=== PATIENT | male | born 1935 | race Caucasian/White ===

== ENCOUNTER 2016-11-25 10:48 | Emergency (ER) | payer OTHER, BC ==
[2016-11-25 11:05] VITALS: BP 147/76; PULSE 75; TEMP 98; BMI 20.5
--- NOTE | 2016-11-25 11:55 | PDOC ---
History of Present Illness - General Chief Complaint: Injury Stated Complaint: RT FINGER PAIN Time Seen by Provider: 11/25/16 10:57 History Source: Patient Exam Limitations: No Limitations - History of Present Illness Initial Comments: 11/25/16 11:50 Patient states was getting up from a folding chair last night when the chair collapsed causing him to fall and crushing his right index finger between chair and the floor. States incurred laceration and contusion. Cleaned with soap and water and put a Band-Aid on. Came for evaluation and x-ray and no other injury 11/25/16 13:04 Occurred: reports: just prior to arrival Severity: reports: mild Pain Location: reports: none Modifying Factors: improves with: None Associated Symptoms (Fall): denies symptoms Past History - Travel Traveled outside of the country in the last 30 days: No Close contact w/someone who was outside of country & ill: No - Past Medical History Allergies/Adverse Reactions: Allergies Allergy/AdvReac Type Severity Reaction Status Date / Time No Known Allergies Allergy Verified 11/25/16 10:51 Home Medications: Ambulatory Orders Aspirin [Ecotrin] 81 mg PO DAILY 08/11/14 Pramipexole Di-HCl [Mirapex] 0.25 mg PO BID 11/25/16 Anemia: No Asthma: No Cancer: No Cardiac Disorders: No CVA: No COPD: No CHF: No Dementia: No Diabetes: No GI Disorders: No Disorders: No HTN: No Hypercholesterolemia: No Liver Disease: (ELEVATED LIVER ENZYMES) Seizures: No Thyroid Disease: No - Surgical History Abdominal Surgery: Yes (CHELSI INGUINAL HERNIA REPAIR) Cholecystectomy: No Neurologic Surgery: No Orthopedic Surgery: Yes (LEFT ROTATOR CUFF REPAIR) - Psycho/Social/Smoking Cessation Hx Anxiety: No Suicidal Ideation: No Smoking History: Former smoker Have you smoked in the past 12 months: No If you are a former smoker, when did you quit?: 2004 Information on smoking cessation initiated: No Hx Alcohol Use: No Drug/Substance Use Hx: No Substance Use Type: None Hx Substance Use Treatment: No Trauma Specific PMHX - Complaint Specific PMHX Back Injury: No Neck Injury: No Review of Systems - Review of Systems Able to Perform ROS?: Yes Is the patient limited Vietnamese proficient: Yes Constitutional: Yes: See HPI. No: Symptoms Reported HEENTM: No: Symptoms Reported Respiratory: No: Symptoms reported Musculoskeletal: Yes: Symptoms Reported, Joint Pain (distal right index finger) Integumentary: Yes: Symptoms Reported, See HPI, Bruising, Other (abrasion to distal right index ) Neurological: No: Symptoms reported All Other Systems: Reviewed and Negative *Physical Exam - Vital Signs Last Vital Signs Temp Pulse Resp BP Pulse Ox 98 F 75 18 147/76 100 11/25/16 10:51 11/25/16 10:51 11/25/16 10:51 11/25/16 10:51 11/25/16 10:51 - Physical Exam General Appearance: Yes: Nourished, Appropriately Dressed, Apparent Distress, Mild Distress HEENT: positive: URBANO, Normal ENT Inspection, TMs Normal, Pharynx Normal Neck: positive: Supple. negative: Tender Respiratory/Chest: positive: Lungs Clear, Normal Breath Sounds Gastrointestinal/Abdominal: positive: Normal Bowel Sounds, Soft Extremity: positive: Normal Capillary Refill, Normal Inspection, Normal Range of Motion (buit painful to flexion/ intact against resistance ), Tender (with superficial abrasions to volar aspect of right distal phalynx ) Integumentary: positive: Dry, Warm Neurologic: positive: deck molder II-XII NML intact, Fully Oriented, Alert, Normal Mood/ Affect, Normal Response, Motor Strength 5/5 ED Treatment Course - RADIOLOGY Radiology Studies Ordered: Category Date Time Status FINGER(S) RIGHT [RAD] Stat Radiology 11/25/16 10:57 Taken Progress Note - Progress Note Progress Note: Crush injury to right index finger, greater than 18 hours old. Cleaned and dressed with bacitracin ointment and splint provided. X-ray negative for fractures or dislocations. *DC/Admit/Observation/Transfer Diagnosis at time of Disposition: Crush injury to finger Qualifiers: Encounter type: initial encounter Qualified Code(s): S67.10XA - Crushing injury of unspecified finger(s), initial encounter - Discharge Dispostion Disposition: HOME Condition at time of disposition: Stable Admit: No - Referrals Referrals: Ferdinand Leonard MD, MD [Primary Care Provider] - - Patient Instructions Printed Discharge Instructions: DI for Crush Injury Additional Instructions: Rest, elevate, avoid strenuous activity or heavy lifting until sutures are removed Leave dressing on for the next 24 hours, Then may remove dressing gently and wash area with soap and water. Reapply bacitracin ointment and dressing daily for the next 5 days May use Tylenol or Motrin for pain relief
== END 2016-11-25 12:00 | disposition home or self-care (01) ==
LOC: SUPCPDRO 10:48 → JERFT 10:48
PROC: 2W3JX1Z Immobilization of Right Finger using Splint (ICD-10-PCS; principal; 2016-11-25)
DX: S67.190A Crushing injury of right index finger, initial encounter (principal); W23.0XXA Caught, crushed, jammed, or pinched between moving objects, initial encounter; Y93.89 Activity, other specified; Y92.89 Other specified places as the place of occurrence of the external cause; R94.5 Abnormal results of liver function studies; Z87.891 Personal history of nicotine dependence
CPT/HCPCS: 73140-TC-RT; 99281-25

== ENCOUNTER 2020-03-20 04:56 | Day surgery (SDC) | payer OTHER, BC ==
[2020-03-19 10:52] VITALS: BMI 20.3
--- OUTSIDE RECORDS SUMMARY | 2020-03-20 05:27 | XMS ---
:1935 Author Organization [facility] Care Team Providers Name Role Phone Erosa Unavailable Erosa Unavailable Re-disclosure Warning The records that you are about to access may contain information from federally- assisted alcohol or drug abuse programs. If such information is present, then the following federally mandated warning applies: This information has been disclosed to you from records protected by federal confidentiality rules (42 CFR part 2). The federal rules prohibit you from making any further disclosure of this information unless further disclosure is expressly permitted by the written consent of the person to whom it pertains or as otherwise permitted by 42 CFR part 2. A general authorization for the release of medical or other information is NOT sufficient for this purpose. The Federal rules restrict any use of the information to criminally investigate or prosecute any alcohol or drug abuse patient.The records that you are about to access may contain highly sensitive health information, the redisclosure of which is protected by Article 27-F of the [facility] Public Health law. If you continue you may haveaccess to information: Regarding HIV / AIDS; Provided by facilities licensed or operated by the [facility] Office of Mental Health; or Provided by the [facility] Office for People With Developmental Disabilities. If such information is present, then the following [facility] mandated warning applies: This information has been disclosed to you from confidential records which are protected by state law. State law prohibits you from making any further disclosure of this information without the specific written consent of the person to whom it pertains, or as otherwise permitted by law. Any unauthorized further disclosure in violation of state law may result in a fine or senior living sentence or both. A general authorization for the release of medical or other information is NOT sufficient authorization for further disclosure. Encounters Encounter Providers Location Date Indications Data Source(s ) Attender: Ricki 03/10/2020 [facility] ([facility] 12:00:00 AM EDT Medical, ) Office Attender: Ricki Mcgowan 03/10/2020 12:00:00 AM EDT [facility] ([facility], ) Office Attender: Ricki Mcgowan 03/10/2020 12:00:00 AM EDT [facility] ([facility], ) Office Attender: Ricki Mcgowan 03/10/2020 12:00:00 AM EDT [facility] ([facility], ) Office Attender: Ricki Mcgowan 03/10/2020 12:00:00 AM EDT [facility] ([facility], ) Office Attender: Ricki Mcgowan 02/27/2020 12:00:00 AM EDT [facility] ([facility], ) Office Attender: Ricki Mcgowan 02/17/2020 12:00:00 AM EDT [facility] ([facility], ) Office Attender: Ricki Mcgowan 02/17/2020 12:00:00 AM EDT [facility] ([facility], ) Office Attender: Ricki Mcgowan 02/17/2020 12:00:00 AM EDT [facility] ([facility], ) Office Attender: Ricki Mcgowan 02/17/2020 12:00:00 AM EDT [facility] ([facility], ) Office Medications Medication Brand Start Product Dose Route Administrative Pharmacy [facility] Indications Reaction Description Data Name Date Form Instructions Instructions Source(s) Cyclobenzap FLEXER 02/26/ TABLET 60 complet FLEX ERIL [facility] ([facility] IL:828 2019 ed [facility] hydrochlori 322 12:00: Medica l, de 5 MG 00 AM ) Oral Tablet EDT [Flexeril] FLEXERIL:82 8322 Cyclobenzap FLEXER 02/26/ TABLET 60 complet FLEX ERIL [facility] ([facility] [place]:828 2019 ed [facility] hydrochlori 322 12:00: Medica l, de 5 MG 00 AM PC) Oral Tablet EDT [Flexeril] FLEXERIL:82 8322 tizanidine TIZANI 02/24/ TABLET 60 complet TIZAN IDINE [facility] (St 2 MG Oral DINE:3 2019 ed [facility] Tablet 99146 12:00: Medical, TIZANIDINE: 00 AM PC) [id number] EDT EMOLLIENTS, 02/24/ CREAM 1 complet EMOLLIE NTS, [facility] (St TOPICAL:2019 ed TOPICAL [facility] 176 12:00: Medical, 00 AM PC) EDT EMOLLIENTS, 02/24/ CREAM 1 complet EMOLLIE NTS, [facility] (St TOPICAL:2019 ed TOPICAL [facility] 176 12:00: Medical, 00 AM PC) EDT tizanidine TIZANI 02/24/ TABLET 60 complet TIZAN IDINE [facility] (St 2 MG Oral DINE:3 2019 ed [facility] Tablet 19802 12:00: Medical, TIZANIDINE: 00 AM PC) [id number] EDT Insurance Providers Payer name Policy type Policy ID Covered Covered green party's Policy P gómez / Coverage green party ID relationship to Espitia Inf ormation type espitia [facility] [id number] SP [id number] [facility] PPO [id number] SP [id number] MEDICARE [id number] SP [id number] PPO [id number] SP [id number] [employer] PLAN [id number] ([facility]) [place] MEDICARE [id number] 1 [id number] PART B [facility] [id number] SP [id number] [facility] PPO [id number] SP [id number] Problems, Conditions, and Diagnoses Code Display Name Description Problem Type Effective Dates Data Source(s) M47.817 Spondylosis SPONDYLOSIS Problem 03/10/2020 [facility] ([facility] 12:00:00 AM EDT [facility], myelopathy or MYELOPATHY OR PC) radiculopathy, RADICULOPATHY, lumbosacral LUMBOSACRAL region REGION M79.18 MYALGIA, OTHER MYALGIA, OTHER Problem 02/05/2020 [facility] ([facility] S[facility] SITE 12:00:00 AM EDT [facility], PC) M54.5 Low back pain LOW BACK PAIN Problem 02/05/2020 [facility] ( St 12:00:00 AM EDT [facility]) M79.18 MYALGIA, OTHER MYALGIA, OTHER Problem 02/05/2020 [facility] ([facility] SITE 12:00:00 AM EDT [facility]) M54.5 Low back pain LOW BACK PAIN Problem 02/05/2020 [facility] ( St 12:00:00 AM EDT [facility]) M79.18 MYALGIA, OTHER MYALGIA, OTHER Problem 02/05/2020 [facility] ([facility] SITE 12:00:00 AM EDT [facility]) M54.5 Low back pain LOW BACK PAIN Problem 02/05/2020 [facility] ( St 12:00:00 AM EDT [facility]) M79.18 MYALGIA, OTHER MYALGIA, OTHER Problem 02/05/2020 [facility] ([facility] SITE 12:00:00 AM EDT [facility]) M54.5 Low back pain LOW BACK PAIN Problem 02/05/2020 [facility] ( St 12:00:00 AM EDT [facility]) M25.512 Pain in left PAIN IN LEFT Problem 12/25/2019 [facility] (St shoulder SHOULDER 12:00:00 AM EDT [facility], PC) M25.512 Pain in left PAIN IN LEFT Problem 12/25/2019 [facility] (St shoulder SHOULDER 12:00:00 AM EDT [facility]) M25.512 Pain in left PAIN IN LEFT Problem 12/25/2019 [facility] (St shoulder SHOULDER 12:00:00 AM EDT [facility]) M25.512 Pain in left PAIN IN LEFT Problem 12/25/2019 [facility] (St shoulder SHOULDER 12:00:00 AM EDT [facility]) M25.512 Pain in left PAIN IN LEFT Problem 12/25/2019 [facility] (St shoulder SHOULDER 12:00:00 AM EDT [facility]) Surgeries/Procedures Procedure Description Date Indications Data Source(s) OFFICE OUTPATIENT VISIT 03/10/2020 [facility] MIN[facility]ES 12:00:00 AM EDT Medical, PC) Documentation of current 02/27/2020 [facility] ([facility] (procedure) 12:00:00 AM EDT [facility], ) PHYSICIAN TELEPHONE 02/27/2020 [facility] ( [facility] EVALUATION 5-10 MIN 12:00:00 AM EDT [facility], ) Documentation of current 02/27/2020 [facility] ([facility]IC[facility] TELEPHONE 02/27/2020 [facility] ( [facility] EVALUATION 5-10 MIN 12:00:00 AM EDT Medic mn, ) OFFICE OUTPATIENT VISIT 02/25/2020 [facility] ([facility] 15 MINUTES 12:00:00 AM EDT Medical, ) OFFICE OUTPATIENT VISIT 02/25/2020 [facility] ([facility] 15 MINUTES 12:00:00 AM EDT [facility], ) OFFICE OUTPATIENT VISIT 02/17/2020 [facility] ([facility] 15 MINUTES 12:00:00 AM EDT [facility], ) INJECTION SINGLE/TRANSPORT DRIVER 02/17/2020 [facility] ([facility] TRIGGER POINT 1/2 MUSCLES 12:00:00 AM EDT [facility], ) OFFICE OUTPATIENT VISIT 02/17/2020 [facility] ([facility] 15 MINUTES 12:00:00 AM EDT [facility], ) INJECTION SINGLE/TRANSPORT DRIVER 02/17/2020 [facility] ([facility] TRIGGER POINT 1/2 MUSCLES 12:00:00 AM EDT [facility], ) OFFICE OUTPATIENT VISIT 02/17/2020 [facility]/TRANSPORT DRIVER 02/17/2020 [facility] ([facility] TRIGGER POINT 1/2 MUSCLES 12:00:00 AM EDT [facility], ) Documentation of current 02/05/2020 [facility] ([facility] (procedure) 12:00:00 AM EDT s[facility], ) Documentation of current 02/05/2020 [facility] ([facility] (procedure) 12:00:00 AM EDT s[facility], ) Documentation of current 02/05/2020 [facility] ([facility] (procedure) 12:00:00 AM EDT sasha, ) Documentation of current 02/05/2020 [facility] ([facility] (procedure) 12:00:00 AM EDT edical, ) Documentation of current 02/05/2020 [facility] ([facility] (procedure) 12:00:00 AM EDT edical, ) OFFICE OUTPATIENT VISIT 02/05/2020 [facility] ([facility] 15 MINUTES 12:00:00 AM T Medical, ) INJECTION SINGLE/TRANSPORT DRIVER 02/05/2020 [facility] ([facility] TRIGGER POINT 1/2 MUSCLES 12:00:00 AM EDT Medical, ) Documentation of current 02/05/2020 [facility] ([facility] current 02/05/2020 [facility] ([facility]procedure) 12[facility]00:00 [facility] Documentation of current 02/05/2020 [facility] ([facility]procedure) 12:00:00 [facility] Documentation of current 02/05/2020 [facility] ([facility]procedure) 12:00:00 [facility] Documentation of current 02/05/2020 [facility] ([facility]procedure) 12:00:00 AM [facility] OFF[facility] OUTPATIENT VISIT 02/05/2020 [facility] ([facility] 15 MINUTES 12:00:00 AM [facility] Medical, ) INJECTION SINGLE/TRANSPORT DRIVER 02/05/2020 [facility] ([facility] TRIGGER POINT 1/2 MUSCLES [facility] Documentation of current 02/05/2020 [facility] ([facility] (procedure) 12:00:00 AM EDT edical, ) Documentation of current 02/05/2020 [facility] ([facility] (procedure) 12:00:00 AM EDT edical, ) OFFICE OUTPATIENT VISIT 02/05/2020 [facility] ([facility] 15 MINUTES 12:00:00 AM EDT Medical, ) Documentation of current 02/05/2020 [facility] ([facility] (procedure) 12:00:00 AM EDT edical, ) Documentation of current 02/05/2020 [facility] ([facility] (procedure) 12:00:00 AM EDT M edical, ) Documentation of current 02/05/2020 [facility] ([facility] (procedure) 12:00:00 AM EDT edical, ) Documentation of current 02/05/2020 [facility] ([facility]procedure) 12:00:00 [facility] Documentation of current 02/05/2020 [facility] ([facility]procedure) 12:00:00 AM ED[facility] Documentation of current 02/05/2020 [facility] ([facility]procedure) 12:00:00 AM ED[facility] OFF[facility] OUTPATIENT VISIT 02/05/2020 [facility] ([facility] 15 MINUTES 12:00:00 AM EDT Medical, ) INJECTION SINGLE/TRANSPORT DRIVER 02/05/2020 [facility] ([facility] TRIGGER POINT 1/2 MUSCLES 12:00:00 AM EDT Medical, ) Documentation of current 12/25/2019 [facility] ([facility] (procedure) 12:00:00 AM ED[facility] Documentation of current 12/25/2019 [facility] ([facility]procedure) 12:00:00 AM ED[facility] OFFICE OUTPATIENT VISIT 12/25/2019 [facility] ([facility] 15 MINUTES 12:00:00 AM [facility] Medical, ) Documentation of current 12/25/2019 [facility] ([facility] (procedure) 12:00:00 AM EDT [facility] Documentation of current 12/25/2019 [facility] ([facility] (procedure) 12:00:00 AM EDT edical, ) OFFICE OUTPATIENT VISIT 12/25/2019 [facility] ([facility] 15 MINUTES 12:00:00 AM EDT Medical, ) Documentation of current 12/25/2019 [facility] ([facility]procedure) 12:00:00 AM ED[facility] OFFICE OUTPATIENT VISIT 12/25/2019 [facility] ([facility] 15 MINUTES 12:00:00 AM EDT Medical, ) Documentation of current 12/25/2019 [facility] ([facility] (procedure) 12:00:00 AM EDT edical, ) OFFICE OUTPATIENT VISIT 12/25/2019 [facility] ([facility] 15 MINUTES 12:00:00 AM EDT Medical, PC) Documentation of current 12/25/2019 [facility] ([facility] (procedure) 12:00:00 AM EDT edical, ) OFFICE OUTPATIENT VISIT 12/25/2019 [facility] ([facility] 15 MINUTES 12:00:00 AM EDT Medical, PC) Results ID Date Data Source [id number] 03/16/2020 08:23:00 AM EDT [facility] Name Value Range Interpretation Description Data Sup porting Code Source(s) Document(s ) SARS [facility] coronavirus 2 RNA This lab was ordered by [facility] and reported by [facility]. ID Date Data Source [id number] 02/12/2020 10:35:00 AM EDT [facility] Name Value Range Interpretation Description Data Sup porting Code Source(s) Document(s ) SARS [facility] coronavirus 2 RNA This lab was ordered by [facility] and reported by [facility]. ID Date Data Source [id number] 01/20/2020 12:00:00 AM EDT [facility] Name Value Range Interpretation Description Data Sup porting Code Source(s) Document(s ) SARS [facility] Coronavirus 2 This lab was ordered by RACIEL copeland reported by [facility]. Procedure Social History Code Duration Value Status Description Data Source(s ) Smoking 03/10/2020 denies ETOH completed denies ETOH [facility] 12:[facility] AM EDT Medical, PC) Smoking 03/10/2020 Unknown if ever completed Unknown if ever [facility] ([facility] 12:00:00 AM EDT smoked smoked Medical, PC) Smoking 03/01/2020 denies ETOH completed denies ETOH [facility] ([facility] 12:00:00 AM EDT Medical, PC) Smoking 03/01/2020 Unknown if ever completed Unknown if ever [facility] ([facility] 12:00:00 AM EDT smoked smoked Medical, PC) Smoking 02/17/2020 denies ETOH completed denies ETOH [facility] ([facility] 12:00:00 AM EDT Medical, PC) Smoking 02/17/2020 Unknown if ever completed Unknown if ever [facility] ([facility] 12:00:00 AM EDT smoked smoked [facility], ) Smoking 02/17/2020 denies ETOH completed denies ETOH [facility] 12:00:00 AM EDT [facility], ) Smoking 02/17/2020 Unknown if ever completed Unknown if ever [facility] ([facility] 12:00:00 AM EDT smoked smoked [facility], ) Smoking 02/17/2020 denies ETOH completed denies ETOH [facility] ([facility] 12:00:00 AM EDT [facility], ) Smoking 02/17/2020 Unknown if ever completed Unknown if ever [facility] ([facility] 12:00:00 AM EDT smoked smoked [facility], ) Vital Signs ID Date Data Source UNK Name Value Range Interpretation Code Description Data Source(s) Heart rate 70 /min 70 /min [facility] ([facility] , ) Respiratory rate 14 /min 14 /min [facility] ( [facility] , ) Inhaled oxygen 98 % 98 % [facility] ([facility], ) Diastolic blood 60 mm[Hg] 60 mm[Hg] [facility] (S pressure [facility] , ) Systolic blood 110 mm[Hg] 110 mm[Hg] [facility] ([facility] , ) Heart rate 64 /min 64 /min [facility] ([facility] , ) Respiratory rate 14 /min 14 /min [facility] ( [facility] , ) Inhaled oxygen 98 % 98 % [facility] ([facility], ) Diastolic blood 60 mm[Hg] 60 mm[Hg] [facility] (S t pressure [facility] , ) Systolic blood 120 mm[Hg] 120 mm[Hg] [facility] ([facility] , ) Heart rate 64 /min 64 /min [facility] ([facility] , ) Respiratory rate 14 /min 14 /min [facility] ( [facility] , ) Inhaled oxygen 98 % 98 % [facility] ([facility], ) Diastolic blood 60 mm[Hg] 60 mm[Hg] [facility] (S t pressure [facility] , ) Systolic blood 120 mm[Hg] 120 mm[Hg] [facility] ([facility] , )
[2020-03-20] MEDS ORDERED: DEXAMETHASONE SOD PHOSPHATE/PF 10 MG/ML SDV ONE (07:19)
[2020-03-20] MEDS ORDERED: BUPIVACAINE HCL/PF 0.25% (2.5MG/ML) 10 ML VIAL ONE (07:19)
[2020-03-20] MEDS ORDERED: BUPIVACAINE HCL/PF 0.75% 10 ML VIAL ONE (07:19)
[2020-03-20] MEDS ORDERED: LIDOCAINE HCL/PF 1% SDV 5ML VIAL ONE (07:19)
--- NOTE | 2020-03-20 09:00 | PROC ---
Procedure Note Procedure: Pre procedure Diagnosis: Lumbar Spondylosis Post Procedure Diagnosis: same Anesthesia: Local Procedure Performed: Right and Left L3 L4 L5 Medial Branch Blocks under Fluoroscopic Guidance Procedure: After the risks and benefits were explained, informed consent was obtained. The patient was then taken to the procedure room and positioned prone on the procedure table. Time out was performed. The region overlying the appropriate vertebral bodies was identified using fluoroscopy. The skin was prepped and draped in the usual sterile fashion. The skin and soft tissues were anesthetized using 1% lidocaine. Using fluoroscopic guidance, 22 gauge 3.5 inch spinal needles were then introduced to the juncture of the superior articular processes and the transverse processes of the RIGHT L3, L4, and L5 medial branches are located. Omnipaque 180 confirmed appropriate needle placement. There was no epidural or vascular flow observed. .75% bupivacaine was drawn into a syringe. 0.5cc of this solution was then injected at each level. The same procedure was repeated on the LEFT side at the same levels. The patient tolerated the procedure well and there were no complications. The patient was taken to the post procedure recovery area in good condition. Vital signs remained stable before, and after the procedure. The patient was given oral follow-up instructions.The patient was givena follow up appointment with me in the near future. Ricki Mcgowan D.O.
[2020-03-20] MEDS ORDERED: LIDOCAINE HCL 1% PRESERVATIVE FREE - 30ML VIAL IJ ONE (09:22)
[2020-03-20] MEDS ORDERED: BUPIVACAINE HCL/PF 0.75% 10 ML VIAL NR ONE (09:22)
[2020-03-20] MEDS ORDERED: IOHEXOL 180 MG/1 ML ML IJ ONE (09:22)
[2020-03-20] MEDS ORDERED: BUPIVACAINE HCL/PF 0.25% (2.5MG/ML) 10 ML VIAL IJ ONE (09:22)
[2020-03-20] MEDS ORDERED: BUPIVACAINE HCL/PF 0.5% (5 MG/ML) 30 ML VIAL IJ ONE (09:22)
[2020-03-20 09:56] VITALS: BP 143/78; PULSE 60; TEMP 98
== END 2020-03-20 10:18 | disposition home or self-care (01) ==
LOC: JASU-SURG 04:56
PROVIDERS: ATTEND Pain Medicine Pain Medicine
PROC: 3E0T33Z Introduction of Anti-inflammatory into Peripheral Nerves and Plexi, Percutaneous Approach (ICD-10-PCS; 2020-03-20)
PROC: 3E0T3BZ Introduction of Anesthetic Agent into Peripheral Nerves and Plexi, Percutaneous Approach (ICD-10-PCS; principal; 2020-03-20 09:30)
DX: M47.816 Spondylosis without myelopathy or radiculopathy, lumbar region (principal); M54.5 Low back pain
CPT/HCPCS: 76000-TC-FY

== ENCOUNTER 2020-03-20 10:00 | Inpatient (IN) | payer OTHER, BC ==
[2020-03-27 12:13] VITALS: BMI 20.3
--- OUTSIDE RECORDS SUMMARY | 2020-03-30 05:12 | XMS ---
:1935 Author Organization [facility] Care Team Providers Name Role Phone Erosa Unavailable Erosa Unavailable Jacek Unavailable [phone] Jacek Unavailable [phone] Jacek Unavailable [phone] Jacek Unavailable [phone] Jacek Unavailable [phone] Jacek Unavailable [phone] Jacek Unavailable [phone] Jacek Unavailable [phone] Jacek Unavailable [phone] Jacek Unavailable [phone] Jacek Unavailable [phone] Jacek Unavailable [phone] Jacek Unavailable [phone] Jacek Unavailable [phone] Jacek Unavailable [phone] Jacek Unavailable [phone] Re-disclosure Warning The records that you are [...] is protected by Article 27-F of the [place] State Public Health law. If you continue you may haveaccess to information: Regarding HIV / AIDS; Provided by facilities licensed or operated by the [facility] Office of Mental Health; or Provided by the [facility] Office for People With Developmental Disabilities. If such information is present, then the following [facility] mandated warning applies: This information has [...] law may result in a fine or retirement sentence or both. A general authorization for the release of medical or other information is NOT sufficient authorization for further disclosure. Encounters Encounter Providers Location Date Indications Data Source(s ) [facility] ([facility] mmir Jacek 12:00:00 AM EDT Jacek Ph ysician) Office Attender: Lisha Read 03/17/2020 12:00:00 AM E DT [facility] Office Attender: Lisha Read 03/17/2020 12:00:00 AM E DT [facility] Office Attender: Lisha Read 03/17/2020 12:00:00 AM E DT [facility] Office Attender: Ricki Mcgowan 03/10/2020 12:00:00 AM EDT [facility] ([facility] Office Attender: Ricki Mcgowan 03/10/2020 12:00:00 AM EDT [facility] ([facility]) Office Attender: Ricki Mcgowan 03/10/2020 12:00:00 AM EDT [facility] ([facility]) Office Attender: Ricki Mcgowan 03/10/2020 12:00:00 AM EDT [facility] ([facility]) Office Attender: Ricki Mcgowan 03/10/2020 12:00:00 AM EDT [facility] ([facility]) Office Attender: Ricki Mcgowan 02/27/2020 12:00:00 AM EDT [facility] ([facility]) Office Attender: Ricki Mcgowan 02/17/2020 12:00:00 AM EDT [facility] ([facility] ) Office Attender: Ricki Simmonsa 02/17/2020 12:00:00 AM EDT [facility] [place]ender: Ricki Simmonsmaya 02/17/2020 12:00:00 AM EDT [facility] [place] Attender: Ricki Mcgowan 02/17/2020 12:00:00 AM EDT [facility] [place] Immunizations Vaccine Date Status Description Data Source(s) Influenza, high dose 03/11/2019 completed [facility] ([facility] J[facility]k seasonal 12:00:00 AM EDT Physician) Influenza, high dose 03/05/2019 completed [facility] ([facility] Jacek seasonal 12:00:00 AM EDT Physician) Medications Medication Brand Start Product Dose Route Administrative Pharmacy [facility] Indications Reaction Description Data Name Date Form Instructions Instructions Source(s) Cyclobenzap FLEXER 02/26/ TABLET 60 complet FLEX ERIL [facility] ([facility] IL:828 2019 ed [facility] hydrochlori 322 12:00: Medica l, de 5 MG 00 AM PC) Oral Tablet EDT [Flexeril] FLEXERIL:82 8322 Cyclobenzap FLEXER 02/26/ TABLET 60 complet [facility] hydrochlori 322 12:00: Medica l, de 5 MG 00 AM PC) Oral Tablet EDT [Flexeril] FLEXERIL:82 8322 tizanidine TIZANI 02/24/ TABLET 60 complet TIZAN IDINE [facility] (St 2 MG Oral DINE:3 2019 ed [facility] Tablet 74256 12:00: Medical, TIZANIDINE: 00 AM PC) [id number] EDT EMOLLIENTS, 02/24/ CREAM 1 complet EMOLLIE NTS, [facility] (St TOPICAL:2019 ed TOPICAL [facility] 176 12:00: Medical, 00 AM PC) EDT EMOLLIENTS, 02/24/ CREAM 1 complet EMOLLIE NTS, [facility] (St TOPICAL:2019 ed TOPICAL [facility] 176 12:00: Medical, 00 AM PC) EDT tizanidine TIZANI 02/24/ TABLET 60 complet TIZAN IDINE [facility] (St 2 MG Oral DINE:3 2019 ed [facility] Tablet 99590 12:00: Medical, TIZANIDINE: 00 AM PC) [id number] EDT Diclofenac VOLTAR 12/04/ GEL 1 complet VOLTARE N MED[facility] Sodium 0.01 EN 2019 ed TOPICAL (Ammi r MG/MG TOPICA 12:00: Jacek Topical Gel L:8556 00 AM Physi larissa) [Voltaren] 35 EDT VOLTAREN TOPICAL:855 635 Rosuvastati CRESTO 07/01/ TABLET 30 complet PEREZ TOR MED[facility] n calcium R:8597 2019 ed (Ammir 10 MG Oral 49 12:00: Jacek Tablet 00 AM Physician) [Crestor] EST CRESTOR:859 749 Hydrocortis HYTONE 07/01/ OINTMENT 1 complet HY TONE MED[facility] one 0.025 :2019 ed (Ammir MG/MG 9 12:00: Jacek Topical 00 AM Physician) Ointment EST [Hytone] HYTONE:2062 gabapentin GABAPE 04/01/ CAPSULE 120 complet AGATHA PENTIN [facility] 100 MG Oral NTIN:3 2018 ed (Ammir Capsule 32296 12:00: Jacek GABAPENTIN: 00 AM Physici an) [id number] EDT Insurance Providers Payer name Policy type Policy ID Covered Covered green party's Policy P gómez / Coverage green party ID relationship to Espitia Inf ormation type espitia [facility] [id number] SP [id number] [facility] PPO [id number] SP [id number] MEDICARE [id number] SP [id number] PPO [id number] SP [id number] EMPIRE PLAN [id number] 1 [id number] 1 ([facility]) [place] MEDICARE [id number] 1 [id number] PART B [employer] [facility] [id number] SP [id number] [facility] PPO [id number] SP [id number] Problems, Conditions, and Diagnoses Code Display Name Description Problem Type Effective Data Dates Source(s) M54.5 Low back pain LOW BACK PAIN Problem 03/17/2020 [facility] ( Ammir 12:00:00 AM Jacek EDT Physician) Z01.818 Encounter for other ENCOUNTER FOR OTHER Problem 020 [facility] ([facility] preprocedural PREPROCEDURAL 12:00:00 AM Jacek examination EXAMINATION EDT Physician) 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 020 [facility] (St myelopathy or MYELOPATHY OR 12:00:00 AM [facility] radiculopathy, RADICULOPATHY, EDT Medica , ) lumbosacral region LUMBOSACRAL REGION M79.18 MYALGIA, OTHER SITE MYALGIA, OTHER SITE Problem 020 MED[facility] (St 12:00:00 AM [facility]'s EDT [facility], ) M54.5 Low back pain LOW BACK PAIN Problem 02/05/2020 MED[facility] ( St 12:00:00 AM [facility], ) M79.18 MYALGIA, OTHER SITE MYALGIA, OTHER SITE Problem 020 [facility] (St 12:00:00 AM [facility]'s [facility], ) M54.5 Low back pain LOW BACK PAIN Problem 02/05/2020 MED[facility] ( St 12:00:00 AM [facility]'s T [facility], ) M79.18 MYALGIA, OTHER SITE MYALGIA, OTHER SITE Problem 020 [facility] (St 12:00:00 AM [facility]'s T [facility], ) M54.5 Low back pain LOW BACK PAIN Problem 02/05/2020 [facility] ( St 12:00:00 AM [facility], ) M79.18 MYALGIA, OTHER SITE MYALGIA, OTHER SITE Problem 020 [facility] (St 12:00:00 AM [facility]'s [facility], ) M54.5 Low back pain LOW BACK PAIN Problem 02/05/2020 [facility] ( St 12:00:00 AM [facility]'s [facility], ) M25.512 Pain in left PAIN IN LEFT Problem 12/25/2019 [facility] (St shoulder SHOULDER 12:00:00 AM [facility]'s [facility], ) M25.512 Pain in left PAIN IN LEFT Problem 12/25/2019 [facility] (St shoulder SHOULDER 12:00:00 AM [facility]'s [facility], ) M25.512 Pain in left PAIN IN LEFT Problem 12/25/2019 [facility] (St shoulder SHOULDER 12:00:00 AM [facility], ) M25.512 Pain in left PAIN IN LEFT Problem 12/25/2019 [facility] (St shoulder SHOULDER 12:00:00 AM [facility], ) M25.512 Pain in left PAIN IN LEFT Problem 12/25/2019 [facility] (St shoulder SHOULDER 12:00:00 AM [facility], ) R94.5 Abnormal results of ABNORMAL RESULTS OF Problem 020 [facility] ([facility] liver function LIVER FUNCTION 12:00:00 AM Rabad i studies STUDIES EDT Physician) Z20.828 Contact with and CONTACT WITH AND Problem 12/05/2019 ME DGEN (Ammir (suspected) (SUSPECTED) 12:00:00 AM Jacek exposure to other EXPOSURE TO OTHER EDT Physician) viral communicable VIRAL COMMUNICABLE diseases DISEASES R53.1 Weakness WEAKNESS Problem 11/13/2019 [facility] (Ammir 12:00:00 AM Jacek EDT Physician) M25.512 Pain in left PAIN IN LEFT Problem 09/24/2019 [facility] (Am christoph shoulder SHOULDER 12:00:00 AM Jacek EDT Physician) 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[facility] ( 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 bilateral carotid BILATERAL CAROTID EST Physician) arteries ARTERIES M54.12 Radiculopathy, RADICULOPATHY, Problem 07/01/2019 [facility] ([facility] cervical region CERVICAL REGION 12:00:00 AM Rab linda EST Physician) L30.9 Dermatitis, DERMATITIS, Problem 07/01/2019 [facility] (Ammi r unspecified UNSPECIFIED 12:00:00 AM Jacek EST Physician) 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[facility] ([facility] 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:00:00 AM Rabad i myelopathy, MYELOPATHY, EDT Physician) thoracic region THORACIC REGION M79.604 Pain in right leg PAIN IN RIGHT LEG Problem 03/11/2019 [facility] (Ammir 12:00:00 AM Jacek EDT Physician) R03.0 Elevated ELEVATED Problem 03/05/2019 [facility] ([facility] blood-pressure BLOOD-PRESSURE 12:00:00 AM Rabad i reading, without READING, WITHOUT EDT Ph ysician) diagnosis of DIAGNOSIS OF hypertension HYPERTENSION N28.1 Cyst of kidney, CYST OF KIDNEY, Problem 02/11/2019 MEDG EN (Ammir acquired ACQUIRED 12:00:00 AM [facility] EDT Physician) 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 9 [facility] (Ammir nodule NODULE 12:00:00 AM [facility] EDT Physician) R13.10 Dysphagia, DYSPHAGIA, Problem 02/04/2019 [facility] (Ammir unspecified UNSPECIFIED 12:00:00 AM [facility] EDT Physician) R05 Cough COUGH Problem 02/04/2019 [facility] (Ammir 12:00:00 AM [facility] EDT Physician) J02.9 Acute pharyngitis, ACUTE PHARYNGITIS, Problem 9 [facility] (Ammir unspecified UNSPECIFIED 12:00:00 AM [facility] EDT Physician) Surgeries/Procedures Procedure Description Date Indications Data Source(s) OFFICE OUTPATIENT VISIT 15 03/10/2020 Christopher FORRESTER ([facility] MINUTES 12:00:00 AM EDT Medical, ) Documentation of current 02/27/2020 [facility] ([facility] (procedure) 12:00:00 AM EDT [facility], ) PHYSICIAN TELEPHONE 02/27/2020 [facility] ( [facility] EVALUATION 5-10 MIN 12:00:00 AM EDT Medic ca, ) Documentation of current 02/27/2020 [facility] ([facility] (procedure) 12:00:00 AM EDT edical, ) PHYSICIAN TELEPHONE 02/27/2020 [facility] ( [facility] EVALUATION 5-10 MIN 12:00:00 AM EDT Medic ca, ) OFFICE OUTPATIENT VISIT 15 02/25/2020 Christopher FORRESTER ([facility]ES 12:00:00 AM EDT Medical, PC) OFFICE OUTPATIENT VISIT 15 02/25/2020 Christopher FORRESTER ([facility]ES 12:00:00 AM EDT Medical, PC) OFFICE OUTPATIENT VISIT 15 02/17/2020 Christopher FORRESTER ([facility] 12:00:00 AM EDT Medical, PC) INJECTION SINGLE/TELECOMMUNICATIONS LINE MECHANIC 02/17/2020 [facility] ([facility] TRIGGER POINT 1/2 MUSCLES 12:00:00 AM EDT Medical, PC) OFFICE OUTPATIENT VISIT 15 02/17/2020 Christopher FORRESTER ([facility]ES 12:00:00 AM EDT Medical, ) INJECTION SINGLE/TELECOMMUNICATIONS LINE MECHANIC 02/17/2020 [facility] ([facility] TRIGGER POINT 1/2 MUSCLES 12:00:00 AM EDT Medical, ) OFFICE OUTPATIENT VISIT 15 02/17/2020 Christopher FORRESTER ([facility] 12:00:00 AM EDT Medical, ) INJECTION SINGLE/TELECOMMUNICATIONS LINE MECHANIC 02/17/2020 [facility] ([facility] TRIGGER POINT 1/2 MUSCLES [...] AM EDT edical, ) OFFICE OUTPATIENT VISIT 15 02/05/2020 Christopher FORRESTER ([facility]ES 12:00:00 AM EDT Medical, ) INJECTION SINGLE/TELECOMMUNICATIONS LINE MECHANIC 02/05/2020 [facility] ([facility] TRIGGER POINT 1/2 MUSCLES 12:00:00 AM EDT [facility], ) Documentation of current 02/05/2020 MED [facility] ([facility] (procedure) 12:00:00 AM EDT edical, ) Documentation of current 02/05/2020 [facility] ([facility] (procedure) 12:00:00 AM EDT edical, PC) Documentation of current 02/05/2020 [facility] ([facility] (procedure) 12:00:00 AM EDT edical, ) Documentation of current 02/05/2020 [facility] ([facility] (procedure) 12:00:00 AM EDT edical, ) Documentation of current 02/05/2020 [facility] ([facility] (procedure) 12:00:00 AM EDT edical, PC) OFFICE OUTPATIENT VISIT 15 02/05/2020 Christopher EDGEN ([facility] 12:00:00 AM EDT Medical, ) INJECTION SINGLE/TELECOMMUNICATIONS LINE MECHANIC 02/05/2020 [facility] ([facility] TRIGGER POINT 1/2 MUSCLES 12:00:00 AM EDT Medical, ) Documentation of current 02/05/2020 [facility] ([facility] (procedure) 12:00:00 AM EDT edical, ) Documentation of current 02/05/2020 [facility] ([facility] (procedure) 12:00:00 AM EDT edical, ) OFFICE OUTPATIENT VISIT 15 02/05/2020 Christopher EDGEN ([facility] 12:00:00 AM EDT Medical, ) Documentation of current 02/05/2020 [facility] ([facility] (procedure) 12:00:00 AM EDT edical, PC) Documentation of current 02/05/2020 [facility] ([facility] (procedure) 12:00:00 AM EDT edical, PC) Documentation of current 02/05/2020 [facility] ([facility] (procedure) 12:00:00 AM EDT edical, ) Documentation of current 02/05/2020 [facility] ([facility] (procedure) 12:00:00 AM EDT edical, PC) Documentation of current 02/05/2020 [facility] ([facility] (procedure) 12:00:00 AM EDT edical, ) Documentation of current 02/05/2020 [facility] ([facility] (procedure) 12:00:00 AM EDT edical, ) OFFICE OUTPATIENT VISIT 15 02/05/2020 Christopher EDGEN ([facility] 12:00:00 AM EDT Medical, ) INJECTION SINGLE/TELECOMMUNICATIONS LINE MECHANIC 02/05/2020 [facility] ([facility] TRIGGER POINT 1/2 MUSCLES 12:00:00 AM EDT Medical, PC) Documentation of current 12/25/2019 [facility] ([facility] (procedure) 12:00:00 AM EDT edical, ) Documentation of current 12/25/2019 [facility] ([facility] (procedure) 12:00:00 AM EDT edical, ) OFFICE OUTPATIENT VISIT 15 12/25/2019 Christopher FORRESTER ([facility]ES 12:00:00 AM EDT Medical, ) Documentation of current 12/25/2019 [facility] ([facility] (procedure) 12:00:00 AM EDT edical, ) Documentation of current 12/25/2019 [facility] ([facility] (procedure) 12:00:00 AM EDT edical, ) OFFICE OUTPATIENT VISIT 15 12/25/2019 Christopher FORRESTER ([facility] 12:00:00 AM EDT Medical, ) Documentation of current 12/25/2019 [facility] ([facility] (procedure) 12:00:00 AM EDT edical, ) OFFICE OUTPATIENT VISIT 15 12/25/2019 hCristopher HDZHarinder ([facility] 12:00:00 AM EDT Medical, ) Documentation of current 12/25/2019 [facility] ([facility] (procedure) 12:00:00 AM EDT [facility], ) OFFICE OUTPATIENT VISIT 15 12/25/2019 Christopher HDZHarinder ([facility] 12:00:00 AM EDT Medical, ) Documentation of current 12/25/2019 [facility] ([facility] (procedure) 12:00:00 AM EDT edical, ) OFFICE OUTPATIENT VISIT 15 12/25/2019 Christopher HDZHarinder ([facility] 12:00:00 AM EDT Medical, ) Documentation of current 04/01/2019 MED [facility] (Ammir Jacek medications (procedure) 12:00:00 AM EDT P hysician) Documentation of current 04/01/2019 MED [facility] (Ammir Jacek medications (procedure) 12:00:00 AM EDT P hysician) Documentation of current 04/01/2019 MED GEN (Ammir Jacek medications (procedure) 12:00:00 AM EDT P hysician) Documentation of current 04/01/2019 MED GEN (Ammir Jacek medications (procedure) 12:00:00 AM EDT P hysician) Documentation of current 03/11/2019 MED GEN (Ammir Jacek medications (procedure) 12:00:00 AM EDT P hysician) Documentation of current 03/11/2019 MED [facility] (Ammir Jacek medications (procedure) 12:00:00 AM EDT P hysician) Documentation of current 03/11/2019 MED [facility] (Ammir Jacek medications (procedure) 12:00:00 AM EDT P hysician) Documentation of current 03/11/2019 MED GEN (Ammir Jacek medications (procedure) 12:00:00 AM EDT P hysician) Documentation of current 03/11/2019 MED [facility] (Ammir Jacek medications (procedure) 12:00:00 AM EDT P hysician) Documentation of current 03/11/2019 MED [facility] (Ammir Jacek medications (procedure) 12:00:00 AM EDT P hysician) Documentation of current 03/11/2019 MED [facility] (Ammir Jacek medications (procedure) 12:00:00 AM EDT P hysician) Documentation of current 03/11/2019 MED [facility] (Ammir Jacek medications (procedure) 12:00:00 AM EDT P hysician) Documentation of current 03/11/2019 MED [facility] (Ammir Jacek medications (procedure) 12:00:00 AM EDT P hysician) Documentation of current 03/11/2019 MED [facility] (Ammir Jacek medications (procedure) 12:00:00 AM EDT P hysician) Documentation of current 03/11/2019 MED [facility] (Ammir Jacek medications (procedure) 12:00:00 AM EDT P hysician) Documentation of current 03/11/2019 MED [facility] (Ammir Jacek medications (procedure) 12:00:00 AM EDT P hysician) Documentation of current 03/11/2019 MED [facility] (Ammir Jacek medications (procedure) 12:00:00 AM EDT P hysician) Documentation of current 03/11/2019 MED [facility] (Ammir Jacek medications (procedure) 12:00:00 AM EDT P hysician) Medication Reconciliation 03/11/2019 ME DGEN (Ammir Jacek (procedure) 12:00:00 AM EDT Physician) Results ID Date Data Source [id number] 03/25/2020 09:40:00 AM EDT [facility] Name Value Range Interpretation Description Data Sup porting Code Source(s) Document(s ) SARS [facility] coronavirus 2 RNA This lab was ordered by [facility] and reported by [facility]. ID Date Data Source [id number] 03/17/2020 12:00:00 AM EDT MED[facility] (Ammir Jacek Physician) Name Value Range Interpretation Code Description Data Emilie rce(s) Supporting Document(s ) BLOOD GROUP A Normal (applies to [facility] (A mmir (ABO) non-numeric results) Jacek Physician) BLOOD neg Normal (applies to [facility] (Amm ir TYPING, RH non-numeric results) Jacek Physician) ID Date Data Source [id number] 03/17/2020 12:00:00 AM EDT [facility] (Ammir Jacek Physician) Name Value Range Interpretation Code Description Data Emilie rce(s) Supporting Document(s ) APTT 31.70 sec Normal (applies to [facility] (Amm ir non-numeric results) Jacek Physician) ID Date Data Source [id number] 03/17/2020 12:00:00 AM EDT [facility] (Ammir Jacek Physician) Name Value Range Interpretation Description Data Sup porting Code Source(s) Document(s ) PROTHROMBIN 13.8 sec Normal (applies MED[facility] TIME, PT to non-numeric (Ammir results) Jacek Physician) INR 1.02 Normal (applies [facility] to non-numeric (Ammir results) Jacek Physician) ID Date Data Source [id number] 03/17/2020 12:00:00 AM EDT [facility] (Ammir Jacek Physician) Name Value Range Interpretation Description Data Sup porting Code Source(s) Document(s ) RBC 4.4 Normal (applies [facility] 10(6)/uL to non-numeric (Ammir results) Jacek Physician) WBC 5.2 Normal (applies [facility] 10(3)/uL to non-numeric (Ammir results) Jacek Physician) Hemoglobin 14.4 g/dL Normal (applies [facility] [Mass/volume] to non-numeric (Ammir in Mixed venous results) Jacek blood by Physician) Oximetry MCV 92.9 fL Normal (applies [facility] to non-numeric (Ammir results) Jacek Physician) Hematocrit 40.6 % Normal (applies [facility] [Pure volume to non-numeric (Ammir fraction] of results) Jacek Blood by Physician) Automated count MCH 33 pg Normal (applies [facility] to non-numeric (Ammir results) Jacek Physician) RDWSD 39.7 fL Normal (applies [facility] to non-numeric (Ammir results) Jacek Physician) MCHC 36 g/dL Above high normal [facility] (Ammir Jacek Physician) RDWCV 11.7 % Normal (applies [facility] to non-numeric (Ammir results) Jacek Physician) Platelet Count 164 Normal (applies [facility] 10(3)/uL to non-numeric (Ammir results) Jacek Physician) MPV 9.6 fL Below low normal [facility] (Ammir Jacek Physician) Neutrophil Abs 2.24 Normal (applies [facility] 10(3)/uL to non-numeric (Ammir results) Jacek Physician) Lymphocyte Abs 2.28 Normal (applies [facility] 10(3)/uL to non-numeric (Ammir results) Jacek Physician) Monocyte Abs 0.48 Normal (applies [facility] 10(3)/uL to non-numeric (Ammir results) Jacek Physician) Eosinophil Abs 0.16 Normal (applies [facility] 10(3)/uL to non-numeric (Ammir results) Jacek Physician) Immature 0.00 Normal (applies [facility] Granulocyte Abs 10(3)/uL to non-numeric (Ammir results) Jacek Physician) Basophil Abs 0.04 Normal (applies [facility] 10(3)/uL to non-numeric (Ammir results) Jacek Physician) Neutrophil % 43.10 % Normal (applies MED[facility] to non-numeric (Ammir results) Jacek Physician) Monocyte % 9.2 % Normal (applies [facility] to non-numeric (Ammir results) Jacek Physician) Lymphocyte % 44 % Normal (applies MED[facility] to non-numeric (Ammir results) Jacek Physician) Eosinophil % 3.1 % Normal (applies MED[facility] to non-numeric (Ammir results) Jacek Physician) Basophil % 0.8 % Normal (applies MEDGEN to non-numeric (Ammir results) Jacek Physician) Immature 0.00 % Normal (applies MEDGEN Granulocyte % to non-numeric (Ammir results) Jacek Physician) NRBC % 0.0 % Normal (applies [facility] to non-numeric (Ammir results) Jacek Physician) NRBC Abs 0.00 Normal (applies MEDGEN 10(3)/uL to non-numeric (Ammir results) Jacek Physician) ID Date Data Source [id number] 03/17/2020 12:00:00 AM EDT [facility] (Ammir Jacek Physician) Name Value Range Interpretation Description Data Sup porting Code Source(s) Document(s ) SODIUM, SERUM 142 Normal (applies MEDGEN mEq/L to non-numeric (Ammir results) Jacek Physician) GLUCOSE 84 mg/dL Normal (applies MED[facility] NONFASTING,SERUM to non-numeric (Ammir results) Jacek Physician) POTASSIUM, SERUM 4.7 Normal (applies MEDGEN mEq/L to non-numeric (Ammir results) Jacek Physician) CHLORIDE, SERUM 106 Normal (applies MEDGEN mEq/L to non-numeric (Ammir results) Jacek Physician) Carbon dioxide 27 mEq/L Normal (applies MEDGEN [VFr/PPres] in to non-numeric (Ammir Gas delivery results) Jacek system Physician) Anion gap in 13.7 Normal (applies MEDGEN Body fluid mEq/L to non-numeric (Ammir results) Jacek Physician) BLOOD UREA 23 mg/dL Normal (applies MEDGEN NITROGEN to non-numeric (Ammir results) Jacek Physician) CREATININE, 1.40 Above high normal MEDGEN SERUM mg/dL (Ammir Jacek Physician) BUN/CREATININE 16.43 Normal (applies MEDGEN RATIO to non-numeric (Ammir results) Jacek Physician) CALCIUM, SERUM 10.5 Normal (applies MEDGEN mg/dL to non-numeric (Ammir results) Jacek Physician) Microalbumin 4.7 g/dL Normal (applies [facility] [Mass/time] in to non-numeric (Ammir Urine collected results) Jacek for unspecified Physician) duration TOTAL PROTEIN 7.2 g/dL Normal (applies [facility] to non-numeric (Ammir results) Jacek Physician) Globulin 2.5 gldl Normal (applies [facility] [Mass/time] in to non-numeric (Ammir 24 hour Urine results) Jacek Physician) BILIRUBIN, TOTAL 1.0 Normal (applies MEDGEN mg/dL to non-numeric (Ammir results) Jacek Physician) A/G RATIO 1.88 Normal (applies MED[facility] g/dl to non-numeric (Ammir results) Jacek Physician) ALKALINE 204 U/L Above high normal MED[facility] PHOSPHATASE, ALP (Ammir Jacek Physician) ALT (SGPT) 90 U/L Above high normal [facility] (Ammir Jacek Physician) AST 60 U/L Above high normal [facility] (Ammir Jacek Physician) EGFR NON AFR 52 Below low normal MEDGEN PERUVIAN mL/min/1 (Ammir .73m2 Jacek Physician) EGFR AFR 62 Normal (applies MEDGEN PERUVIAN mL/min/1 to non-numeric (Ammir .73m2 results) Jacek Physician) ID Date Data Source [id number] 03/16/2020 08:23:00 AM EDT [facility] Name Value Range Interpretation Description Data Sup porting Code Source(s) Document(s ) SARS [facility] coronavirus 2 RNA This lab was ordered by [facility] and reported by [facility]. ID Date Data Source [id number] 02/12/2020 10:35:00 AM EDT [facility] Name Value Range Interpretation Description Data Sup porting Code Source(s) Document(s ) SARS [facility] coronavirus 2 RNA This lab was ordered by [facility] and reported by [facility]. ID Date Data Source [id number] 01/20/2020 12:00:00 AM EDT [facility] Name Value Range Interpretation Description Data Sup porting Code Source(s) Document(s ) [facility] Coronavirus 2 This lab was ordered by RACIEL copeland reported by [facility]. ID Date Data Source [id number] 12/05/2019 12:00:00 AM EDT [facility] (Ammir Jacek Physician) Name Value Range Interpretation Code Description Data Emilie rce(s) Supporting Document(s ) COV2T Negative Normal (applies to [facility] (Amm ir non-numeric results) Jacek Physician) ID Date Data Source [id number] 12/05/2019 12:00:00 AM EDT [facility] (Ammir Jacek Physician) Name Value Range Interpretation Code Description Data Emilie rce(s) Supporting Document(s ) %PSA, Test not Normal (applies to [facility] (Amm ir FREE performed. non-numeric Jacek results) Physician) ID Date Data Source [id number] 12/05/2019 12:00:00 AM EDT [facility] (Ammir Jacek Physician) Name Value Range Interpretation Code Description Data Emilie rce(s) Supporting Document(s ) PSA, FREE 0.45 ng/mL Normal (applies to [facility] (Am christoph non-numeric Jacek results) Physician) ID Date Data Source [id number] 12/05/2019 12:00:00 AM EDT [facility] (Ammir Jacek Physician) Name Value Range Interpretation Code Description Data Supporting Source(s) Document(s ) PSA, TOTAL 1.72 ng/mL Normal (applies to [facility] (A mmir non-numeric Jacek results) Physician) ID Date Data Source [id number] 12/05/2019 12:00:00 AM EDT [facility] (Ammir Jacek Physician) Name Value Range Interpretation Description Data Sup porting Code Source(s) Document(s ) WBC 6.0 Normal (applies [facility] 10(3)/uL to non-numeric (Ammir results) Jacek Physician) RBC 4.1 Normal (applies [facility] 10(6)/uL to non-numeric (Ammir results) Jacek Physician) Hemoglobin 13.6 g/dL Normal (applies [facility] [Mass/volume] to non-numeric (Ammir in Mixed venous results) Jacek blood by Physician) Oximetry MCV 96.1 fL Normal (applies [facility] to non-numeric (Ammir results) Jacek Physician) Hematocrit 39.7 % Normal (applies [facility] [Pure volume to non-numeric (Ammir fraction] of results) Jacek Blood by Physician) Automated count MCH 33 pg Normal (applies [facility] to non-numeric (Ammir results) Jacek Physician) RDWSD 43.6 fL Normal (applies [facility] to non-numeric (Ammir results) Jacek Physician) MCHC 34 g/dL Normal (applies [facility] to non-numeric (Ammir results) Jacek Physician) Platelet Count 199 Normal (applies [facility] 10(3)/uL to non-numeric (Ammir results) Jacek Physician) RDWCV 12.4 % Normal (applies [facility] to non-numeric (Ammir results) Jacek Physician) MPV 9.3 fL Below low normal [facility] (Ammir Jacek Physician) Lymphocyte Abs 1.46 Normal (applies [facility] 10(3)/uL to non-numeric (Ammir results) Jacek Physician) Neutrophil Abs 3.77 Normal (applies [facility] 10(3)/uL to non-numeric (Ammir results) Jacek Physician) Monocyte Abs 0.58 Normal (applies [facility] 10(3)/uL to non-numeric (Ammir results) Jacek Physician) Basophil Abs 0.05 Normal (applies [facility] 10(3)/uL to non-numeric (Ammir results) Jacek Physician) Eosinophil Abs 0.17 Normal (applies [facility] 10(3)/uL to non-numeric (Ammir results) Jacek Physician) Immature 0.02 Normal (applies [facility] Granulocyte Abs 10(3)/uL to non-numeric (Ammir results) Jacek Physician) Neutrophil % 62.60 % Normal (applies [facility] to non-numeric (Ammir results) Jacek Physician) Lymphocyte % 24 % Normal (applies [facility] to non-numeric (Ammir results) Jacek Physician) Eosinophil % 2.8 % Normal (applies [facility] to non-numeric (Ammir results) Jacek Physician) Monocyte % 9.6 % Normal (applies [facility] to non-numeric (Ammir results) Jacek Physician) Basophil % 0.8 % Normal (applies [facility] to non-numeric (Ammir results) Jacek Physician) Immature 0.30 % Normal (applies [facility] Granulocyte % to non-numeric (Ammir results) Jacek Physician) NRBC % 0.0 % Normal (applies [facility] to non-numeric (Ammir results) Jacek Physician) NRBC Abs 0.00 Normal (applies [facility] 10(3)/uL to non-numeric (Ammir results) Jacek Physician) ID Date Data Source [id number] 12/05/2019 12:00:00 AM EDT [facility] (Ammir Jacek Physician) Name Value Range Interpretation Description Data Sup porting Code Source(s) Document(s ) Hemoglobin A1c 5.3 % Normal (applies to [facility] (Ammir in Blood non-numeric Jacek results) Physician) ID Date Data Source [id number] 12/05/2019 12:00:00 AM EDT [facility] (Ammir Jacek Physician) Name Value Range Interpretation Description Data Sup porting Code Source(s) Document(s ) SODIUM, SERUM 138 Normal (applies [facility] mEq/L to non-numeric (Ammir results) Jacek Physician) GLUCOSE 92 mg/dL Normal (applies [facility] NONFASTING,SERUM to non-numeric (Ammir results) Jacek Physician) POTASSIUM, SERUM 4.8 Normal (applies [facility] mEq/L to non-numeric (Ammir results) Jacek Physician) CHLORIDE, SERUM 104 Normal (applies [facility] mEq/L to non-numeric (Ammir results) Jacek Physician) Carbon dioxide 27 mEq/L Normal (applies [facility] [VFr/PPres] in to non-numeric (Ammir Gas delivery results) Jacek system Physician) Anion gap in 11.8 Normal (applies [facility] Body fluid mEq/L to non-numeric (Ammir results) Jacek Physician) BLOOD UREA 25 mg/dL Above high normal [facility] NITROGEN (Ammir Jacek Physician) CREATININE, 1.40 Above high normal [facility] SERUM mg/dL (Ammir Jacek Physician) CALCIUM, SERUM 9.9 Normal (applies [facility] mg/dL to non-numeric (Ammir results) Jacek Physician) BUN/CREATININE 17.86 Normal (applies [facility] RATIO to non-numeric (Ammir results) Jacek Physician) Microalbumin 4.6 g/dL Normal (applies [facility] [Mass/time] in to non-numeric (Ammir Urine collected results) Jacek for unspecified Physician) duration TOTAL PROTEIN 7.0 g/dL Normal (applies [facility] to non-numeric (Ammir results) Jacek Physician) Globulin 2.4 gldl Normal (applies [facility] [Mass/time] in to non-numeric (Ammir 24 hour Urine results) Jacek Physician) BILIRUBIN, TOTAL 0.8 Normal (applies [facility] mg/dL to non-numeric (Ammir results) Jacek Physician) A/G RATIO 1.92 Normal (applies [facility] g/dl to non-numeric (Ammir results) Jacek Physician) ALT (SGPT) 88 U/L Above high normal [facility] (Ammir Jacek Physician) ALKALINE 172 U/L Above high normal [facility] PHOSPHATASE, ALP (Ammir Jacek Physician) AST 67 U/L Above high normal [facility] (Ammir Jacek Physician) EGFR AFR 62 Normal (applies [facility] PERUVIAN mL/min/1 to non-numeric (Ammir .73m2 results) Jacek Physician) EGFR NON AFR 52 Below low normal [facility] PERUVIAN mL/min/1 (Ammir .73m2 Jacek Physician) ID Date Data Source [id number] 07/01/2019 12:00:00 AM EST [facility] (Ammir Jacek Physician) Name Value Range Interpretation Description Data Sup porting Code Source(s) Document(s ) Ferritin 199.5 Normal (applies to [facility] (Amm ir [Interpretat ng/mL non-numeric Jacek ion] in results) Physician) Blood ID Date Data Source [id number] 07/01/2019 12:00:00 AM EST [facility] (Ammir Jacek Physician) Name Value Range Interpretation Description Data Sup porting Code Source(s) Document(s ) Transferrin 254 mg/dL Normal (applies [facility] [Mass/time] in to non-numeric (Ammir 24 hour Urine results) Jacek Physician) TIBC 356.2 Normal (applies [facility] ug/dL to non-numeric (Ammir results) Jacek Physician) %SATURATION 24.4 % Normal (applies [facility] to non-numeric (Ammir results) Jacek Physician) UIBC 269.2 Normal (applies [facility] ug/dL to non-numeric (Ammir results) Jacek Physician) ID Date Data Source [id number] 07/01/2019 12:00:00 AM EST [facility] (Ammir Jacek Physician) Name Value Range Interpretation Description Data Sup porting Code Source(s) Document(s ) Cholesterol 240 Above high normal [facility] [Moles/volume] mg/dL (Ammir in Pericardial Jacek fluid Physician) CHOL/HDL RATIO 1.89 Normal (applies [facility] ratio to non-numeric (Ammir results) Jacek Physician) LDL CALCULATION 100.0 Normal (applies [facility] mg/dL to non-numeric (Ammir results) Jacek Physician) HDL CHOLESTEROL 127 Normal (applies [facility] mg/dL to non-numeric (Ammir results) Jacek Physician) TRIGLYCERIDES 65 mg/dL Normal (applies [facility] to non-numeric (Ammir results) Jacek Physician) VLDL CALCULATION 13.0 Normal (applies [facility] mg/dl to non-numeric (Ammir results) Jacek Physician) ID Date Data Source [id number] 07/01/2019 12:00:00 AM EST [facility] (Ammir Jacek Physician) Name Value Range Interpretation Code Description Data Emilie rce(s) Supporting Document(s ) IRON, 87 ug/dL Normal (applies to [facility] (Amm ir TOTAL non-numeric Jacke results) Physician) ID Date Data Source [id number] 07/01/2019 12:00:00 AM EST [facility] (Ammir Jacek Physician) Name Value Range Interpretation Description Data Sup porting Code Source(s) Document(s ) WBC 5.2 Normal (applies [facility] 10(3)/uL to non-numeric (Ammir results) Jacek Physician) Hemoglobin 14.8 g/dL Normal (applies [facility] [Mass/volume] to non-numeric (Ammir in Mixed venous results) Jacek blood by Physician) Oximetry RBC 4.6 Normal (applies [facility] 10(6)/uL to non-numeric (Ammir results) Jacek Physician) Hematocrit 42.7 % Normal (applies [facility] [Pure volume to non-numeric (Ammir fraction] of results) Jacek Blood by Physician) Automated count MCH 33 pg Normal (applies [facility] to non-numeric (Ammir results) Jacek Physician) MCV 93.8 fL Normal (applies [facility] to non-numeric (Ammir results) Jacek Physician) MCHC 35 g/dL Normal (applies [facility] to non-numeric (Ammir results) Jacek Physician) RDWCV 12.7 % Normal (applies [facility] to non-numeric (Ammir results) Jacek Physician) RDWSD 43.4 fL Normal (applies [facility] to non-numeric (Ammir results) Jacek Physician) MPV 9.6 fL Below low normal [facility] (Ammir Jacek Physician) Platelet Count 224 Normal (applies [facility] 10(3)/uL to non-numeric (Ammir results) Jacek Physician) Neutrophil Abs 2.62 Normal (applies [facility] 10(3)/uL to non-numeric (Ammir results) Jacek Physician) Lymphocyte Abs 1.89 Normal (applies [facility] 10(3)/uL to non-numeric (Ammir results) Jacek Physician) Monocyte Abs 0.50 Normal (applies [facility] 10(3)/uL to non-numeric (Ammir results) Jacek Physician) Eosinophil Abs 0.09 Normal (applies [facility] 10(3)/uL to non-numeric (Ammir results) Jacek Physician) Basophil Abs 0.06 Normal (applies [facility] 10(3)/uL to non-numeric (Ammir results) Jacek Physician) Immature 0.01 Normal (applies [facility] Granulocyte Abs 10(3)/uL to non-numeric (Ammir results) Jacek Physician) Neutrophil % 50.60 % Normal (applies [facility] to non-numeric (Ammir results) Jacek Physician) Lymphocyte % 37 % Normal (applies [facility] to non-numeric (Ammir results) Jacek Physician) Monocyte % 9.7 % Normal (applies [facility] to non-numeric (Ammir results) Jacek Physician) Eosinophil % 1.7 % Normal (applies [facility] to non-numeric (Ammir results) Jacek Physician) Basophil % 1.2 % Normal (applies [facility] to non-numeric (Ammir results) Jacek Physician) NRBC % 0.0 % Normal (applies [facility] to non-numeric (Ammir results) Jacek Physician) Immature 0.20 % Normal (applies [facility] Granulocyte % to non-numeric (Ammir results) Jacek Physician) NRBC Abs 0.00 Normal (applies [facility] 10(3)/uL to non-numeric (Ammir results) Jacek Physician) ID Date Data Source [id number] 07/01/2019 12:00:00 AM EST [facility] (Ammir Jacek Physician) Name Value Range Interpretation Description Data Sup porting Code Source(s) Document(s ) GLUCOSE 102 Normal (applies [facility] NONFASTING,SERUM mg/dL to non-numeric (Ammir results) Jacek Physician) SODIUM, SERUM 141 Normal (applies [facility] mEq/L to non-numeric (Ammir results) Jacek Physician) CHLORIDE, SERUM 107 Normal (applies [facility] mEq/L to non-numeric (Ammir results) Jacek Physician) POTASSIUM, SERUM 5.2 Normal (applies [facility] mEq/L to non-numeric (Ammir results) Jacek Physician) Carbon dioxide 28 mEq/L Normal (applies [facility] [VFr/PPres] in to non-numeric (Ammir Gas delivery results) Jacek system Physician) Anion gap in 11.2 Normal (applies [facility] Body fluid mEq/L to non-numeric (Ammir results) Jacek Physician) BLOOD UREA 32 mg/dL Above high normal [facility] NITROGEN (Ammir Jacek Physician) CREATININE, 1.40 Above high normal [facility] SERUM mg/dL (Ammir Jacek Physician) CALCIUM, SERUM 10.0 Normal (applies [facility] mg/dL to non-numeric (Ammir results) Jacek Physician) BUN/CREATININE 22.86 Above high normal [facility] RATIO (Ammir Jacek Physician) Microalbumin 4.7 g/dL Normal (applies [facility] [Mass/time] in to non-numeric (Ammir Urine collected results) Jacek for unspecified Physician) duration TOTAL PROTEIN 6.9 g/dL Normal (applies [facility] to non-numeric (Ammir results) Jacek Physician) Globulin 2.2 gldl Normal (applies [facility] [Mass/time] in to non-numeric (Ammir 24 hour Urine results) Jacek Physician) BILIRUBIN, TOTAL 0.6 Normal (applies [facility] mg/dL to non-numeric (Ammir results) Jacek Physician) A/G RATIO 2.14 Above high normal [facility] g/dl (Ammir Jacek Physician) ALKALINE 156 U/L Above high normal [facility] PHOSPHATASE, ALP (Ammir Jacek Physician) AST 60 U/L Above high normal [facility] (Ammir Jacek Physician) ALT (SGPT) 74 U/L Above high normal [facility] (Ammir Jacek Physician) EGFR NON AFR 52 Below low normal [facility] PERUVIAN mL/min/1 (Ammir .73m2 Jacek Physician) EGFR AFR 62 Normal (applies [facility] PERUVIAN mL/min/1 to non-numeric (Ammir .73m2 results) Jacek Physician) Procedure Social History Code Duration Value Status Description Data Source(s ) Smoking 03/27/2020 FORMER SMOKER, completed FORMER SMOKER, QUIT Christopher FORRESTER (Ammir 12:00:00 AM EDT QUIT 25 YEARS 25 YEARS AGO. - R tae Physician) AGO. - Alcohol: Alcohol: 1 TO 2 1 TO 2 GLASSES GLASSES OF WINE OF WINE WITH WITH DINNER DINNER Smoking 03/27/2020 Unknown if ever completed Unknown if ever [facility] (Ammir 12:00:00 AM EDT smoked smoked Jacek Ph ysician) Smoking 03/10/2020 denies ETOH completed denies ETOH [facility] ([facility], ) Smoking 03/10/2020 Unknown if ever completed Unknown [...] 12:00:00 AM EDT smoked smoked [facility], [facility]) Vital Signs ID Date Data Source [id number] Name Value Range Interpretation Code Description Data Source(s) Heart rate 60 /min 60 /min [facility] (Ammir Jacek Physician) Body temperature 97.5 F 97.5 F [facility] ( Ammir Jacek Physician) Inhaled oxygen 96 % 96 % [facility] (Am christoph concentration Jacek Physician) Body mass index 19.9 kg/m2 19.9 kg/m2 [facility] (A mmir (BMI) [Ratio] Jacek Physician) Diastolic blood 76 mm[Hg] 76 mm[Hg] [facility] (A mmir pressure Jacek Physician) Systolic blood 132 mm[Hg] 132 mm[Hg] [facility] (Am christoph pressure Jacek Physician) Body weight 127 lb 127 lb [facility] (Ammir Jacek Physician) Body height 67 in 67 in [facility] (Ammir Jacek Physician) Heart rate 70 /min 70 /min [facility] ([facility]) Respiratory rate 14 /min 14 /min [facility] ( [facility] , ) Inhaled oxygen 98 % 98 % [facility] ([facility], ) Diastolic blood 60 mm[Hg] 60 mm[Hg] [facility] (S t pressure [facility]) Systolic blood 110 mm[Hg] 110 mm[Hg] [facility] (St pressure [facility] , ) Heart rate 64 /min 64 /min [facility] ([facility] , ) Respiratory rate 14 /min 14 /min [facility] ( [facility] , ) Inhaled oxygen 98 % 98 % [facility] (St concentration [facility], ) Diastolic blood 60 mm[Hg] 60 mm[Hg] [facility] (S t pressure [facility] , ) Systolic blood 120 mm[Hg] 120 mm[Hg] [facility] (St pressure [facility] , ) Heart rate 64 /min 64 /min [facility] ([facility] , ) Respiratory rate 14 /min 14 /min [facility] ( [facility] Inhaled oxygen 98 % 98 % [facility] (St concentration [facility], ) Diastolic blood 60 mm[Hg] 60 mm[Hg] [facility] (S t pressure [facility]) Systolic blood 120 mm[Hg] 120 mm[Hg] [facility] ([facility] , ) Heart rate 72 /min 72 /min [facility] (Ammir Jacek Physician) Body temperature 98 F 98 F [facility] ( Ammir Jacek Physician) Inhaled oxygen 98 % 98 % [facility] (Am christoph concentration Jacek Physician) Body mass index 21 kg/m2 21 kg/m2 [facility] (A mmir (BMI) [Ratio] Jacek Physician) Diastolic blood 80 mm[Hg] 80 mm[Hg] [facility] (A mmir pressure Jacek Physician) Systolic blood 120 mm[Hg] 120 mm[Hg] [facility] (Am christoph pressure Jacek Physician) Body weight 130 lb 130 lb [facility] (Ammir Jacek Physician) Body height 66 in 66 in [facility] (Ammir Jacek Physician) Heart rate 63 /min 63 /min [facility] (Ammir Jacek Physician) Body temperature 97.9 F 97.9 F [facility] ( Ammir Jacek Physician) Inhaled oxygen 98 % 98 % [facility] (Am christoph concentration Jacek Physician) Body mass index 21 kg/m2 21 kg/m2 [facility] (A mmir (BMI) [Ratio] Jacek Physician) Diastolic blood 80 mm[Hg] 80 mm[Hg] [facility] (A mmir pressure Jacek Physician) Systolic blood 150 mm[Hg] 150 mm[Hg] [facility] (Am christoph pressure Jacek Physician) Body weight 130 lb 130 lb [facility] (Ammir Jacek Physician) Body height 66 in 66 in [facility] (Ammir Jacek Physician) Heart rate 79 /min 79 /min [facility] (Ammir Jacek Physician) Body temperature 97.9 F 97.9 F [facility] ( Ammir Jacek Physician) Inhaled oxygen 96 % 96 % [facility] (Am christoph concentration Jacek Physician) Body mass index 19.5 kg/m2 19.5 kg/m2 [facility] (A mmir (BMI) [Ratio] Jacek Physician) Diastolic blood 78 mm[Hg] 78 mm[Hg] [facility] (A mmir pressure Jacek Physician) Systolic blood 154 mm[Hg] 154 mm[Hg] [facility] (Am christoph pressure Jacek Physician) Body weight 128 lb 128 lb [facility] (Ammir Jacek Physician) Body height 68 in 68 in [facility] (Ammir Jacek Physician) Heart rate 70 /min 70 /min [facility] (Ammir Jacek Physician) Body temperature 97.9 F 97.9 F [facility] ( Ammir Jacek Physician) Inhaled oxygen 98 % 98 % [facility] (Am christoph concentration Jacek Physician) Body mass index 19.5 kg/m2 19.5 kg/m2 [facility] (A mmir (BMI) [Ratio] Jacek Physician) Diastolic blood 60 mm[Hg] 60 mm[Hg] [facility] (A mmir pressure Jacek Physician) Systolic blood 150 mm[Hg] 150 mm[Hg] [facility] (Am christoph pressure Jacek Physician) Body weight 128 lb 128 lb [facility] (Ammir Jacek Physician) Body height 68 in 68 in [facility] (Ammir Jacek Physician) Heart rate 65 /min 65 /min [facility] (Ammir Jacek Physician) Body temperature 97.9 F 97.9 F [facility] ( Ammir Jacek Physician) Inhaled oxygen 98 % 98 % [facility] (Am christoph concentration Jacek Physician) Body mass index 19 kg/m2 19 kg/m2 [facility] (A mmir (BMI) [Ratio] Jacek Physician) Diastolic blood 76 mm[Hg] 76 mm[Hg] [facility] (A mmir pressure Jacek Physician) Systolic blood 152 mm[Hg] 152 mm[Hg] [facility] (Am christoph pressure Jacek Physician) Body weight 125 lb 125 lb [facility] (Ammir Jacek Physician) Body height 68 in 68 in [facility] (Ammir Jacek Physician) Heart rate 70 /min 70 /min [facility] (Ammir Jacek Physician) Body temperature 97.8 F 97.8 F [facility] ( Ammir Jacek Physician) Inhaled oxygen 97 % 97 % [facility] (Am christoph concentration Jacek Physician) Body mass index 19 kg/m2 19 kg/m2 [facility] (A mmir (BMI) [Ratio] Jacek Physician) Diastolic blood 68 mm[Hg] 68 mm[Hg] [facility] (A mmir pressure Jacek Physician) Systolic blood 120 mm[Hg] 120 mm[Hg] [facility] (Am christoph pressure Jacek Physician) Body weight 125 lb 125 lb [facility] (Ammir Jacek Physician) Body height 68 in 68 in [facility] (Ammir Jacek Physician) Heart rate 69 /min 69 /min [facility] (Ammir Jacek Physician) Body temperature 97.6 F 97.6 F [facility] ( Ammir Jacek Physician) Inhaled oxygen 98 % 98 % [facility] (Am christoph concentration Jacek Physician) Body mass index 21.1 kg/m2 21.1 kg/m2 [facility] (A mmir (BMI) [Ratio] Jacek Physician) Diastolic blood 60 mm[Hg] 60 mm[Hg] [facility] (A mmir pressure Jacek Physician) Systolic blood 144 mm[Hg] 144 mm[Hg] [facility] (Am christoph pressure Jacek Physician) Body weight 127 lb 127 lb [facility] (Ammir Jacek Physician) Body height 65 in 65 in [facility] (Ammir Jacek Physician)
[2020-03-30] MEDS ORDERED: ceFAZolin SODIUM 1 GM VIAL ONE ×2 (10:34→14:10)
[2020-03-30] MEDS ORDERED: LIDOCAINE HCL 0.5%, 5 MG/ML (50mL SDVIAL) ONE (11:12)
[2020-03-30] MEDS ORDERED: POVIDONE-IODINE OINTMENT 10% - 28.4 GM TUBE ONE (11:14)
[2020-03-30] MEDS ORDERED: CEFAZOLIN 1 GM in DEXTROSE 5%-WATER - 100 ML IVPB ONE (12:30)
--- NOTE | 2020-03-30 13:06 | HP ---
Admitting History and Physical - Admission History of Present Illness: 84 year old man with right carotid stenosis > 80%. No prior stroke or TIA. He is right handed. History Source: Patient Limitations to Obtaining History: No Limitations - Past Medical History Cardiovascular: Yes: CAD, HTN - Smoking History Smoking history: Former smoker Have you smoked in the past 12 months: No If you are a former smoker, when did you quit?: 20 YRS AGO - Alcohol/Substance Use Hx Alcohol Use: Yes Home Medications - Allergies Allergies/Adverse Reactions: Allergies Allergy/AdvReac Type Severity Reaction Status Date / Time No Known Allergies Allergy Verified 03/27/20 12:13 - Home Medications Home Medications: Ambulatory Orders Aspirin [Ecotrin] 81 mg PO DAILY 08/11/14 Pramipexole Di-HCl [Mirapex] 0.25 mg PO BID 11/25/16 Multivit-Min/FA/Lycopen/Lutein [Centrum Silver Men Tablet] 1 tab PO DAILY 06/07/19 Acetaminophen [Tylenol -] 500 mg PO Q6H PRN #100 tablet 06/22/19 Clopidogrel Bisulfate [Plavix] 75 mg PO DAILY 03/20/20 Lisinopril 5 mg PO DAILY 03/20/20 Rosuvastatin [Crestor -] 10 mg PO DAILY 03/20/20 Physical Examination Constitutional: Yes: Well Nourished, No Distress Eyes: Yes: WNL, EOM Intact HENT: Yes: WNL Neck: Yes: Supple Cardiovascular: Yes: Regular Rate and Rhythm Respiratory: Yes: Regular Gastrointestinal: Yes: Soft Extremities: Yes: WNL Edema: No Neurological: Yes: Alert, Oriented Problem List - Problems (1) Carotid stenosis, right Assessment/Plan: Severe stenosis of right ICA. Plan right carotid endarterectomy. Post-op ICU Code(s): I65.21 - OCCLUSION AND STENOSIS OF RIGHT CAROTID ARTERY
[2020-03-30] MEDS ORDERED: MIDAZOLAM HCL 2 MG/2 ML SINGLE DOSE VIAL ONE ×2 (13:15)
[2020-03-30] MEDS ORDERED: PROPOFOL 20 ML ONE (13:15)
[2020-03-30] MEDS ORDERED: fentaNYL CITRATE 250 MCG/5 ML VIAL ONE (13:15)
[2020-03-30] MEDS ORDERED: ROCURONIUM BROMIDE 50 MG/5 ML SYRINGE ONE (13:15)
[2020-03-30] MEDS ORDERED: LIDOCAINE HCL 1%, 10 MG/ML (20ML VIAL) ONE (13:31)
[2020-03-30] MEDS ORDERED: ceFAZolin SODIUM 1 GM VIAL IVPB ONE (14:00)
[2020-03-30] MEDS ORDERED: niCARdipine HCL 25 MG/10 ML - 10 ML VIAL IVPB ONE (14:30)
[2020-03-30] MEDS ORDERED: HEPARIN NA (PORCINE) 5,000 UNITS/ML 1ML VIAL ONE (14:54)
[2020-03-30] MEDS ORDERED: EPHEDRINE SULFATE/0.9% NACL/PF 50 MG/10 ML SYRINGE NR ONE (15:11)
[2020-03-30] MEDS ORDERED: PROTAMINE SULFATE 50 MG/5 ML VIAL ONE (15:52)
[2020-03-30] MEDS ORDERED: NEOSTIGMINE METHYLSULFATE 0.5 MG/ML - 10 ML MDV ONE (16:06)
[2020-03-30] MEDS ORDERED: GLYCOPYRROLATE 0.2 MG/1 ML VIAL ONE (16:06)
--- NOTE | 2020-03-30 16:26 | OP ---
Operative Note - Note: Operative Date: 03/30/20 Pre-Operative Diagnosis: Right carotid stenosis Operation: Right carotid endarterectomy Findings: Large plaque of right carotid bulb with severe stenosis of proximal ICA Implants: Bovine pericardial patch Post-Operative Diagnosis: Same as Pre-op Surgeon: Aneudy Adam Yard Worker: Kelley Seymour Anesthesiologist/CLIENT ANALYST: Reynaldo Morris Anesthesia: General Specimens Removed: Plaque Estimated Blood Loss (mls): 100
[2020-03-30] MEDS ORDERED: ACETAMINOPHEN 500 MG TABLET (FP) PO PRN (16:43)
[2020-03-30] MEDS ORDERED: oxyCODONE HCL 5 MG TABLET PO PRN ×2 (16:44)
[2020-03-30] MEDS ORDERED: LACTATED RINGERS SOLUTION 1,000 ML/1,000 ML INFUS.BAG IV SCH (16:45)
[2020-03-30] MEDS ORDERED: POLYETHYLENE GLYCOL 3350 119 GM BTL PO PRN (16:48)
--- NOTE | 2020-03-30 16:58 | SURG ---
Surgery Licensed Practical Nurse Instructor Note Licensed Practical Nurse Instructor: Kelley Seymour PA-C Date of Service: 03/30/20 Diagnosis: : Right carotid stenosis Procedure: Right carotid endarterectomy I was present for the entirety of the operative procedure. For further detail, please refer to operative report. Visit type - Case Type Case Type: Scheduled - Emergency Emergency Visit: No - New patient This patient is new to me today: Yes Date on this admission: 03/30/20
[2020-03-30] MEDS ORDERED: ONDANSETRON 4 MG/2 ML VIAL IVPUSH PRN (17:05)
[2020-03-30] MEDS ORDERED: LACTATED RINGERS SOLUTION 1,000 ML IV SCH (17:15)
[2020-03-30] MEDS ORDERED: OXYTOCIN 10 UNITS/ML VIAL ONE ×2 (17:34→17:39)
--- NOTE | 2020-03-30 18:59 | CONSULT ---
Consultation: REQUESTING PROVIDER: Dr. Adam CONSULT REQUEST: We have been asked to medically evaluate this patient for ICU admission HISTORY OF PRESENT ILLNESS: Patient presented to ICU s/p right carotid endarterectomy for severe ICA stenosis. PMHx of parkinson's, HTN & HLD Only complains of mouth being dry post op and feeling a little drowsy. Pain well controlled. REVIEW OF SYSTEMS: CONSTITUTIONAL: feels drowsy Absent: fever, chills, diaphoresis, generalized weakness, malaise, loss of appetite, weight change HEENT: mild pain around incision site Absent: rhinorrhea, nasal congestion, throat pain, throat swelling, difficulty swallowing, mouth swelling, ear pain, eye pain, visual changes CARDIOVASCULAR: Absent: chest pain, syncope, palpitations, irregular heart rate, lightheadedness, peripheral edema RESPIRATORY: Absent: cough, shortness of breath, dyspnea with exertion, orthopnea, wheezing, stridor, hemoptysis GASTROINTESTINAL: Absent: abdominal pain, abdominal distension, nausea, vomiting, diarrhea, c onstipation, melena, hematochezia GENITOURINARY: Absent: dysuria, frequency, urgency, hesitancy, hematuria, flank pain, genital pain MUSCULOSKELETAL: Absent: myalgia, arthralgia, joint swelling, back pain, neck pain SKIN: Absent: rash, itching, pallor HEMATOLOGIC/IMMUNOLOGIC: Absent: easy bleeding, easy bruising, lymphadenopathy, frequent infections ENDOCRINE: Absent: unexplained weight gain, unexplained weight loss, heat intolerance, cold intolerance NEUROLOGIC: Absent: headache, focal weakness or paresthesias, dizziness, unsteady gait, seizure, mental status changes, bladder or bowel incontinence PSYCHIATRIC: Absent: anxiety, depression, suicidal or homicidal ideation, hallucinations. PHYSICAL EXAMINATION Vital Signs - 24 hr 03/30/20 03/30/20 03/30/20 17:00 17:15 17:30 Temperature Pulse Rate 61 60 62 Respiratory 14 Rate Blood Pressure 116/50 L 120/51 L 117/48 L O2 Sat by Pulse 100 100 100 Oximetry (%) 03/30/20 03/30/20 17:45 18:00 Temperature 98.0 F Pulse Rate 58 L 60 Respiratory 18 Rate Blood Pressure 104/42 L 110/61 O2 Sat by Pulse 100 99 Oximetry (%) GENERAL: Awake, alert, and fully oriented, in no acute distress. HEAD: Normal with no signs of trauma. EYES: PERRL, EOMI ENT: dry mucous membranes. NECK: Bandage on R side of neck over incision site. LUNGS: CTA BL HEART: RRR, s1, s2 ABDOMEN: Soft, nontender, not distended, normoactive bowel sounds, no guarding, no rebound, no masses. No hepatomegaly or splenomegaly. MUSCULOSKELETAL: Normal range of motion at all joints. No bony deformities or tenderness. No CVA tenderness. UPPER EXTREMITIES: 2+ pulses, warm, well-perfused. No cyanosis. No clubbing. Cap refill <2 seconds. No peripheral edema. LOWER EXTREMITIES: 2+ pulses, warm, well-perfused. No calf tenderness. No peripheral edema. NEUROLOGICAL: Cranial nerves II-XII intact. Normal speech. Normal gait. PSYCHIATRIC: Cooperative. Good eye contact. Appropriate mood and affect. SKIN: Warm, dry, normal turgor, no rashes or lesions noted. Laboratory Results - last 24 hr 03/30/20 09:38 Blood Type A NEGATIVE Antibody Screen Negative Active Medications Generic Name Dose Route Start Last Admin Trade Name Freq PRN Reason Stop Dose Admin Acetaminophen 900 mg 03/30/20 16:43 Tylenol - PO Q6H PRN PAIN LEVEL 1-5 Aspirin 81 mg 03/31/20 10:00 Ecotrin - PO DAILY SHANNAN Docusate Sodium 100 mg 03/30/20 22:00 Colace - PO TID SHANNAN Folic Acid 1 mg 03/31/20 10:00 Folic Acid - PO DAILY SHANNAN Lactated Ringer's 1,000 ml in 1,000 mls @ 75 mls/hr 03/30/20 16:45 Lactated Ringers Solution IV ASDIR SHANNAN Cefazolin Sodium 1 gm in 50 mls @ 100 mls/hr 03/30/20 22:00 Ancef 1 Gm Premixed Ivpb - IVPB 03/31/20 21:59 Q8H SHANNAN Lactated Ringer's 1,000 mls @ 75 mls/hr 03/30/20 17:15 Lactated Ringers Solution IV ASDIR SHANNAN Lisinopril 5 mg 03/31/20 10:00 Prinivil PO DAILY SHANNAN Ondansetron HCl 4 mg 03/30/20 16:45 Zofran Injection IVPUSH Q6H PRN NAUSEA Ondansetron HCl 4 mg 03/30/20 17:05 Zofran Injection IVPUSH Q6H PRN NAUSEA AND/OR VOMITING Oxycodone HCl 5 mg 03/30/20 16:44 Roxicodone - PO Q6H PRN PAIN LEVEL 4 - 6 Oxycodone HCl 10 mg 03/30/20 16:44 Roxicodone - PO Q6H PRN PAIN LEVEL 7 - 10 Polyethylene Glycol 17 gm 03/30/20 16:48 Miralax (For Daily Use) - PO DAILY PRN CONSTIPATION Pramipexole Dihydrochloride 0.25 mg 03/30/20 22:00 Mirapex - PO BID [facility] Rosuvastatin Calcium 10 mg 03/31/20 22:00 Crestor - PO HS [facility] Home Medications Medication Instructions Recorded Aspirin [Ecotrin] 81 mg PO DAILY 08/11/14 Pramipexole Di-HCl [Mirapex] 0.25 mg PO BID 11/25/16 Multivit-Min/FA/Lycopen/Lutein 1 tab PO DAILY 06/07/19 [Centrum Silver Men Tablet] Acetaminophen [Tylenol -] 500 mg PO Q6H PRN #100 tablet 06/22/19 Clopidogrel Bisulfate [Plavix] 75 mg PO DAILY 03/20/20 Lisinopril 5 mg PO DAILY 03/20/20 Rosuvastatin [Crestor -] 10 mg PO DAILY 03/20/20 ASSESSMENT/PLAN: 84 yo male with PMHx of Parkinson's, HTN & HLD. Presented to ICU s/p right car otid endarterectomy for severe ICA stenosis. Neuro - alert and oriented - hx parkinsons, on mirapex 0.25 BID - on oxycodone for pain Cardio - s/p carotid endarterectomy - Large plaque of right carotid bulb with severe stenosis of proximal ICA with Bovine pericardial patch - HTN, HLD: continue lisinopril &crestor - continue daily aspirin - holding plavix per surgery Pulm - no issues - incentive spirometer Renal - no current issues GI - on miralax and colace to prevent constipation from opioids - zofran PRN for nausea ID - Ancef 1 Gm Q8h post op FEN - liquids for now, advance diet as per surgery - LR 75cc/hr - replete electrolytes PRN DVT ppx - BL SCDS GI ppx - none Dispo: per surgery recs Visit type - Medication Review Med list reviewed for High Risk Meds patients 65 and older: Yes - Emergency Visit Emergency Visit: Yes ED Registration Date: 03/30/20 Care time: The patient presented to the Emergency Department on the above date and was hospitalized for further evaluation of their emergent condition. - New Patient This patient is new to me today: Yes Date on this admission: 03/30/20 - Critical Care Critical Care patient: Yes Total Critical Care Time (in minutes): 37 Critical Care Statement: The care of this patient involved high complexity decision making to prevent further life threatening deterioration of the patient's condition and/or to evaluate & treat vital organ system(s) failure or risk of failure. ATTENDING PHYSICIAN STATEMENT I saw and evaluated the patient. I reviewed the resident's note and discussed the case with the resident. I agree with the resident's findings and plan as documented. SUBJECTIVE: OBJECTIVE: ASSESSMENT AND PLAN:
[2020-03-30] MEDS: DOCUSATE SODIUM 100 MG CAPSULE (FP) PO SCH (21:27)
[2020-03-30] MEDS: CEFAZOLIN 1 GM/D5W 1 GM/50 ML BAG IVPB SCH (21:27)
[2020-03-30] MEDS: HEPARIN NA (PORCINE) 5,000 UNITS/ML 1ML VIAL SQ SCH (21:45)
[2020-03-30] MEDS: PRAMIPEXOLE DIHYDROCHLORIDE 0.25 MG TABLET PO SCH (22:10)
[2020-03-31] MEDS: ONDANSETRON 4 MG/2 ML VIAL IVPUSH PRN ×2 (00:46→08:59)
[2020-03-31] MEDS: DOCUSATE SODIUM 100 MG CAPSULE (FP) PO SCH ×2 (06:05→13:12)
[2020-03-31] MEDS: CEFAZOLIN 1 GM/D5W 1 GM/50 ML BAG IVPB SCH ×2 (06:06→13:12)
[2020-03-31 07:39] LABS: BASO % 0.1 % (0-2.0); HEMOGLOBIN 11.8 GM/dL (11.7-16.9); LYMPH % 12.8 % (8-40); MCH 32.9 pg (25.7-33.7); MCHC 33.7 g/dl (32.0-35.9); MEAN CELL VOLUME 97.5 fl (80-96); MEAN PLT VOLUME 8.2 fl (7.5-11.1); MONO % 4.5 % (3.8-10.2); NEUT % 82.6 % (42.8-82.8); PLATELET COUNT 141 K/MM3 (134-434); RBC 3.59 M/mm3 (4.00-5.60); WHITE BLOOD COUNT 5.7 K/mm3 (4.0-10.0)
[2020-03-31 08:06] LABS: BILIRUBIN,TOTAL 0.8 mg/dL (0.2-1); BLOOD UREA NITROGEN 33.2 mg/dL (7-18); CALCIUM 8.3 mg/dL (8.5-10.1); CREATININE 1.5 mg/dL (0.55-1.3); PHOSPHOROUS 4.8 mg/dL (2.5-4.9); POTASSIUM 5.6 mmol/L (3.5-5.1); TOT PROT 5.6 g/dl (6.4-8.2)
--- NOTE | 2020-03-31 08:33 | DS ---
Physical Exam: SUBJECTIVE: Patient seen and examined. Alert. Recovering in ICU without incidient s/p Right CEA. C/o mild incisional tenderness. Adequate pain control with PRN meds. He is voiding spontaneously. Tolerating clears. Denies n/v/f/c, CP, palpitations, MACIAS, dizzy, weak, numbness/tingling or neuro deficits. OBJECTIVE: Last Vital Signs Temp Pulse Resp BP Pulse Ox 97.7 F 62 18 114/48 L 100 03/31/20 06:00 03/31/20 06:00 03/31/20 06:00 03/31/20 06:00 03/31/20 04:00 PHYSICAL EXAM GENERAL: The patient is awake, alert, and fully oriented, in no acute distress. HEAD: Normal with no signs of trauma. EYES: PERRL, extraocular movements intact, sclera anicteric, conjunctiva clear. NECK: Right neck with jordan insitu. No hematoma or oozing. LUNGS: Unlabored respirations on room air HEART: RRR ABD: Soft, nontender, nondistended EXTREMITIES: 2+ pulses, warm, well-perfused, no edema. NEUROLOGICAL: GMNVI bilat PSYCH: Normal mood, normal affect. LABS CBC, BMP 03/31/20 05:40 03/31/20 05:40 HOSPITAL COURSE: Date of Admission:03/30/20 Date of Discharge: 03/31/20 The patient was admitted to the ICU s/p Right CEA. Now POD #1. Patient OOB to chair. Using incentive spirometer as directed. Narcotic and non-narcotic pain management control was achieved with an oral and IV approach. Alis-operative IV ABX were administered. DVT prophylaxis was achieved with SCDs and early ambulation. Started on low sodium controlled diet and tolerated. Prior too prescribing narcotics for home pain management, checked with [facility] [employer]. The discharge instructions and an oral pain management plan were reviewed with the patient. All questions answered. Above plan discussed with Dr. Adam and agreed. Minutes to complete discharge: 35 Visit type - Case Type Case Type: Scheduled - New patient This patient is new to me today: Yes Date on this admission: 03/31/20
[2020-03-31] MEDS ORDERED: CALCIUM GLUCONATE 10% - 1,000 MG/10 ML VIAL IVPUSH ONE (08:42)
[2020-03-31] MEDS ORDERED: DEXTROSE 50%-WATER - 25 GM/50 ML VIAL IVPUSH ONE (08:42)
[2020-03-31] MEDS ORDERED: INSULIN REGULAR HUMAN 100 UNITS/ML *VIAL IVPUSH ONE (08:42)
[2020-03-31] MEDS ORDERED: DEXTROSE 50%-WATER - 25 GM/50 ML VIAL ONE (08:48)
[2020-03-31] MEDS ORDERED: PT OWN MED DRAWER 7, Y5N ONE (09:19)
--- NOTE | 2020-03-31 09:48 | PN ---
Progress Note (short form) - Note Progress Note: POD 1 No complaints. VSS Neck wound clean and dry, no edema. Neuro exam non-focal Stable course May go home this afternoon if stable. Discussed with ICU staff. Problem List - Problems (1) Carotid stenosis, right Code(s): I65.21 - OCCLUSION AND STENOSIS OF RIGHT CAROTID ARTERY
[2020-03-31] MEDS ORDERED: CLOPIDOGREL BISULFATE 75 MG TABLET (FP) PO SCH (10:00)
[2020-03-31] MEDS ORDERED: FOLIC ACID 1 MG TABLET (FP) PO SCH (10:00)
[2020-03-31] MEDS ORDERED: LISINOPRIL 5 MG TABLET PO SCH (10:00)
[2020-03-31] MEDS ORDERED: ASPIRIN COATED 81 MG TABLET.EC PO SCH (10:00)
--- NOTE | 2020-03-31 10:34 | OP ---
DATE OF OPERATION: 03/30/2020 SURGEON: Aneudy Adam MD DRY PLASTERER HELPER: CAROL Calles PROCEDURE: Right carotid endarterectomy. PREOPERATIVE DIAGNOSIS: Right carotid stenosis. POSTOPERATIVE DIAGNOSIS: Right carotid stenosis. ANESTHESIA: General. ANESTHESIOLOGIST: LUCRETIA Tovar OPERATIVE FINDINGS: There was a large calcified plaque at the right carotid bifurcation with stenosis of the internal carotid of greater than 80%. OPERATIVE PROCEDURE: Following routine patient identification with site and side verification, general anesthesia was induced. The right neck and chest were prepped with ChloraPrep. Timeout was performed. Incision was made along the anterior border of the right sternocleidomastoid and extended deep through the subcutaneous tissues and platysma muscle with cautery. The anterior border of the sternocleidomastoid was freed, and the muscle was retracted laterally. The anterior border of the internal jugular vein was dissected sharply. Side branches were ligated and divided. The vein was retracted laterally. The common carotid artery was mobilized at the base of the incision and secured with a vessel loop. Distal dissection allowed identification of the external carotid which was secured at its origin with a vessel loop. The internal carotid was then exposed by division of the overlying tissue. Coursing vessels were ligated and divided. The hypoglossal nerve was identified. The internal carotid was secured distal to the atherosclerotic plaque. Patient was systemically heparinized. The internal, external, and common carotid arteries were then occluded, and the arteriotomy made from the common to the internal carotid to a point distal to atherosclerotic plaque. There was excellent backbleeding from the distal internal carotid artery, and no shunt was required. Endarterectomy was performed to remove plaque from the common internal and external branches. Loose medial fibers were removed. The distal intima was well adhered and did not require tacking sutures. The arteriotomy was then closed with the use of a bovine pericardial patch which was sutured to the arterial voss with 6-0 Prolene. Prior to completion of the suture line, all vessels were allowed to back bleed and flush, and the lumen was filled with heparin solution. Suture line was completed and flow restored first to the external and then the internal carotid artery. Evaluation with the hand-held Doppler revealed good flow in all branches. Bleeding from the suture line was controlled with Surgicel. When hemostasis was adequate, the wound was closed with interrupted suture of 3-0 Vicryl on the platysmal layer and skin jordan. Sterile dressings were applied, and the patient was taken to the recovery room in stable condition. Doreen FERNANDEZ/[id number]
[2020-03-31] MEDS: PRAMIPEXOLE DIHYDROCHLORIDE 0.25 MG TABLET PO SCH (10:48)
[2020-03-31] MEDS: HEPARIN NA (PORCINE) 5,000 UNITS/ML 1ML VIAL SQ SCH (10:49)
--- NOTE | 2020-03-31 11:24 | PN ---
Progress Note (short form) - Note Progress Note: Anesthesiology Post-op POD#1 s/p right CEA under GA. Pt. OOB, sitting comfortably in chair. He denies pain but does c/o some nausea which is getting better. No other issues. VSS. 84 year-old man with stable post-operative course. Continue management as per primary team.
--- NOTE | 2020-03-31 14:45 | PN ---
Teaching Attending Note Name of Resident: Cate Taylor ATTENDING PHYSICIAN STATEMENT I saw and evaluated the patient. I reviewed the resident's note and discussed the case with the resident. I agree with the resident's findings and plan as documented. SUBJECTIVE: Pt seen and examined in the ICU. A little groggy but no other specific co mplaints. OBJECTIVE: Vital Signs Period Temp Pulse Resp BP Sys/Shipley Pulse Ox Last 24 Hr 97.7 F-98.2 F 58-83 14-24 104-135/42-79 98-100 Intake & Output 03/28/20 03/29/20 03/30/20 03/31/20 23:59 23:59 23:59 23:59 Intake Total 2650 750 Output Total 20 1000 Balance 2630 -250 Weight 58.967 kg Gen: NAD at rest Heart: RRR Lung: decreased breath sounds at the bases Abd: soft, nontender Ext: no edema CBC, BMP 03/31/20 05:40 03/31/20 13:05 Active Medications Acetaminophen (Tylenol -) 900 mg PO Q6H PRN PRN Reason: PAIN LEVEL 1-5 Aspirin (Ecotrin -) 81 mg PO DAILY [facility] Last Admin: 03/31/20 10:49 Dose: 81 mg Documented by: Clopidogrel Bisulfate (Plavix -) 75 mg PO DAILY [facility] Last Admin: 03/31/20 10:48 Dose: 75 mg Documented by: Docusate Sodium (Colace -) 100 mg PO TID [facility] Last Admin: 03/31/20 13:12 Dose: 100 mg Documented by: Folic Acid (Folic Acid -) 1 mg PO DAILY [facility] Last Admin: 03/31/20 10:48 Dose: 1 mg Documented by: Heparin Sodium (Porcine) (Heparin -) 5,000 unit SQ BID [facility] Last Admin: 03/31/20 10:49 Dose: 5,000 unit Documented by: Lactated Ringer's (Lactated Ringers Solution) 1,000 ml in 1,000 mls @ 75 mls/hr IV ASDIR [facility] Last Admin: 03/30/20 19:21 Dose: Not Given Documented by: Cefazolin Sodium (Ancef 1 Gm Premixed Ivpb -) 1 gm in 50 mls @ 100 mls/hr IVPB Q8H [facility] Stop: 03/31/20 21:59 Last Admin: 03/31/20 13:12 Dose: 100 mls/hr Documented by: Lactated Ringer's (Lactated Ringers Solution) 1,000 mls @ 75 mls/hr IV ASDIR [facility] Last Admin: 03/30/20 19:21 Dose: 75 mls/hr Documented by: Lisinopril (Prinivil) 5 mg PO DAILY [facility] Last Admin: 03/31/20 10:49 Dose: 5 mg Documented by: Ondansetron HCl (Zofran Injection) 4 mg IVPUSH Q6H PRN PRN Reason: NAUSEA Last Admin: 03/31/20 08:59 Dose: 4 mg Documented by: Ondansetron HCl (Zofran Injection) 4 mg IVPUSH Q6H PRN PRN Reason: NAUSEA AND/OR VOMITING Oxycodone HCl (Roxicodone -) 5 mg PO Q6H PRN PRN Reason: PAIN LEVEL 4 - 6 Last Admin: 03/30/20 21:27 Dose: 5 mg Documented by: Polyethylene Glycol (Miralax (For Daily Use) -) 17 gm PO DAILY PRN PRN Reason: CONSTIPATION Pramipexole Dihydrochloride (Mirapex -) 0.25 mg PO BID [facility] Last Admin: 03/31/20 10:48 Dose: 0.25 mg Documented by: Rosuvastatin Calcium (Crestor -) 10 mg PO [facility] ASSESSMENT AND PLAN: Severe Carotid Stenosis s/p R CEA HTN Hyperlipidemia Parkinsons - BP monitoring - PO as tolerated - PT eval - ASA, plavix, statin - DVT prophylaxis - d/c planning
[2020-03-31 15:16] VITALS: BP 127/73; PULSE 62; TEMP 98.5
--- NOTE | 2020-03-31 15:16 | PN ---
Physical Exam: SUBJECTIVE: Patient seen and examined. No events overnight. No pain. Is hungry wants to eat today. OBJECTIVE: Vital Signs Period Temp Pulse Resp BP Sys/Shipley Pulse Ox Last 24 Hr 97.7 F-98.2 F 58-83 14-24 104-135/42-79 98-100 GENERAL: Awake, alert, and fully oriented, in no acute distress. HEAD: Normal with no signs of trauma. EYES: PERRL, EOMI ENT: moist mucus membranes NECK: Bandage on R side of neck over incision site. LUNGS: CTA BL HEART: RRR, s1, s2 ABDOMEN: Soft, nontender, not distended, normoactive bowel sounds EXTREMITIES: 2+ pulses, warm, well-perfused. No peripheral edema. NEUROLOGICAL: Cranial nerves II-XII intact. Normal speech. PSYCHIATRIC: Cooperative. Good eye contact. Appropriate mood and affect. SKIN: Warm, dry, no rashes or lesions noted. Laboratory Results - last 24 hr 03/31/20 03/31/20 03/31/20 05:40 05:40 13:05 WBC 5.7 RBC 3.59 L Hgb 11.8 Hct 35.0 L D MCV 97.5 H MCH 32.9 MCHC 33.7 RDW 14.0 Plt Count 141 D MPV 8.2 D Absolute Neuts (auto) 4.7 Neutrophils % 82.6 D Lymphocytes % 12.8 D Monocytes % 4.5 Eosinophils % 0.0 D Basophils % 0.1 Nucleated RBC % 0 Sodium 138 Potassium 5.6 H 4.8 Chloride 105 Carbon Dioxide 27 Anion Gap 6 L BUN 33.2 H Creatinine 1.5 H Est GFR (CKD-EPI)AfAm 49.54 Est GFR (CKD-EPI)NonAf 42.74 Random Glucose 149 H Calcium 8.3 L Phosphorus 4.8 Magnesium 2.0 Total Bilirubin 0.8 AST 124 H ALT 130 H Alkaline Phosphatase 160 H Total Protein 5.6 L Albumin 3.0 L Active Medications Generic Name Dose Route Start Last Admin Trade Name Freq PRN Reason Stop Dose Admin Acetaminophen 900 mg 03/30/20 16:43 Tylenol - PO Q6H PRN PAIN LEVEL 1-5 Aspirin 81 mg 03/31/20 10:00 03/31/20 10:49 Ecotrin - PO 81 mg DAILY SHANNAN Administration Clopidogrel Bisulfate 75 mg 03/31/20 10:00 03/31/20 10:48 Plavix - PO 75 mg DAILY SHANNAN Administration Docusate Sodium 100 mg 03/30/20 22:00 03/31/20 13:12 Colace - PO 100 mg TID SHANNAN Administration Folic Acid 1 mg 03/31/20 10:00 03/31/20 10:48 Folic Acid - PO 1 mg DAILY SHANNAN Administration Heparin Sodium (Porcine) 5,000 unit 03/30/20 22:00 03/31/20 10:49 Heparin - SQ 5,000 unit BID SHANNAN Administration Lactated Ringer's 1,000 ml in 1,000 mls @ 75 mls/hr 03/30/20 16:45 03/30/20 19:21 Lactated Ringers Solution IV Not Given ASDIR SHANNAN Cefazolin Sodium 1 gm in 50 mls @ 100 mls/hr 03/30/20 22:00 03/31/20 13:12 Ancef 1 Gm Premixed Ivpb - IVPB 03/31/20 21:59 100 mls/hr Q8H SHANNAN Administration Lactated Ringer's 1,000 mls @ 75 mls/hr 03/30/20 17:15 03/30/20 19:21 Lactated Ringers Solution IV 75 mls/hr ASDIR SHANNAN Administration Lisinopril 5 mg 03/31/20 10:00 03/31/20 10:49 Prinivil PO 5 mg DAILY SHANNAN Administration Ondansetron HCl 4 mg 03/30/20 16:45 03/31/20 08:59 Zofran Injection IVPUSH 4 mg Q6H PRN Administration NAUSEA Ondansetron HCl 4 mg 03/30/20 17:05 Zofran Injection IVPUSH Q6H PRN NAUSEA AND/OR VOMITING Oxycodone HCl 5 mg 03/30/20 16:44 03/30/20 21:27 Roxicodone - PO 5 mg Q6H PRN Administration PAIN LEVEL 4 - 6 Polyethylene Glycol 17 gm 03/30/20 16:48 Miralax (For Daily Use) - PO DAILY PRN CONSTIPATION Pramipexole Dihydrochloride 0.25 mg 03/30/20 22:00 03/31/20 10:48 Mirapex - PO 0.25 mg BID SHANNAN Administration Rosuvastatin Calcium 10 mg 03/31/20 22:00 Crestor - PO HS SHANNAN ASSESSMENT/PLAN: 84 yo male with PMHx of Parkinson's, HTN & HLD. Presented to ICU s/p right carotid endarterectomy for severe ICA stenosis. Neuro - alert and oriented - hx parkinsons, on mirapex 0.25 BID - on oxycodone for pain Cardio - s/p carotid endarterectomy - Large plaque of right carotid bulb with severe stenosis of proximal ICA with Bovine pericardial patch - HTN, HLD: continue lisinopril & crestor - continue daily aspirin Pulm - no issues - incentive spirometer Renal - no current issues GI - on miralax and colace to prevent constipation from opioids - zofran PRN for nausea ID - Ancef 1 Gm Q8h post op FEN - regular diet today - replete electrolytes PRN DVT ppx - BL SCDS GI ppx - none Dispo: - tolerated diet and PT - discharged by surgery Visit type - Emergency Visit Emergency Visit: Yes ED Registration Date: 03/30/20 Care time: The patient presented to the Emergency Department on the above date and was hospitalized for further evaluation of their emergent condition. - New Patient This patient is new to me today: No - Critical Care Critical Care patient: Yes Total Critical Care Time (in minutes): 36 Critical Care Statement: The care of this patient involved high complexity decision making to prevent further life threatening deterioration of the patient's condition and/or to evaluate & treat vital organ system(s) failure or risk of failure. - Discharge Referral Referred to [facility] Med P.C.: No - Medication Review Med list reviewed for High Risk Meds patients 65 and older: Yes ATTENDING PHYSICIAN STATEMENT I saw and evaluated the patient. I reviewed the resident's note and discussed the case with the resident. I agree with the resident's findings and plan as documented. SUBJECTIVE: OBJECTIVE: ASSESSMENT AND PLAN:
[2020-03-31] MEDS ORDERED: ROSUVASTATIN CA 10 MG TABLET (FP) PO SCH (22:00)
--- NOTE | 2020-04-01 17:29 | PATH ---
Surgical Pathology Report Patient Name: BUZZ JC Med. Rec. #: [id number] /Age/Gender: 1935 (Age: 84) / M Account: [id number] Location: [facility] [employer]PER[employer] Taken: 03/30/2020 Received: 03/31/2020 Reported: 04/01/2020 Physicians: Aneudy Adam M.D. Specimen(s) Received RIGHT CAROTID PLAQUE Clinical History Occlusion and stenosis of right carotid artery Final Diagnosis CAROTID PLAQUE, RIGHT, ENDARTERECTOMY: ATHEROMATOUS AND CALCIFIED PLAQUE. Electronically Signed Marielena Cox M.D. Gross Description Received in formalin labeled "right carotid plaque," is a 2.8 x 1.0 x 0.9 cm andrade-yellow, calcified portion of plaque. Monkey Breeder sections are submitted in one cassette, following decalcification. /03/31/2020 saudi03/31/2020
== END 2020-03-31 16:00 | disposition home health service (06) | DRG 39 ==
LOC: J2C 03-30 05:08 → JICU 03-30 18:26
PROVIDERS: ADMIT Surgery; ATTEND Surgery
PROC: 03UK0KZ Supplement Right Internal Carotid Artery with Nonautologous Tissue Substitute, Open Approach (ICD-10-PCS; 2020-03-30)
PROC: 03CK0ZZ Extirpation of Matter from Right Internal Carotid Artery, Open Approach (ICD-10-PCS; principal; 2020-03-30 12:00)
DX: I65.21 Occlusion and stenosis of right carotid artery (principal); I10 Essential (primary) hypertension; E78.5 Hyperlipidemia, unspecified; G20 Parkinson's disease
CPT/HCPCS: 36415; 76705-TC; 80053; 83735; 84100; 84132; 85025; 86850; 86900; 86901; 88304-TC; 94010; 94760; 97116-GP; 97162-GP; J1644

== ENCOUNTER 2020-06-05 04:54 | Day surgery (SDC) | payer OTHER, BC ==
[2020-06-04 10:43] VITALS: BMI 20.3
[2020-06-05] MEDS ORDERED: DEXAMETHASONE SOD PHOSPHATE/PF 10 MG/ML SDV ONE (07:18)
[2020-06-05] MEDS ORDERED: LIDOCAINE HCL/PF 1% SDV 5ML VIAL ONE (07:18)
[2020-06-05] MEDS ORDERED: BUPIVACAINE HCL/PF 0.25% (2.5MG/ML) 10 ML VIAL ONE (07:19)
[2020-06-05] MEDS ORDERED: BUPIVACAINE HCL/PF 0.75% 10 ML VIAL ONE (07:19)
[2020-06-05 09:05] VITALS: BP 122/68; PULSE 69; TEMP 98.4
== END 2020-06-05 09:35 | disposition home or self-care (01) ==
LOC: JASU-SURG 04:54
PROVIDERS: ATTEND Pain Medicine Pain Medicine
DX: Z53.8 Procedure and treatment not carried out for other reasons (principal)

== ENCOUNTER 2020-06-26 04:10 | Day surgery (SDC) | payer OTHER, BC ==
[2020-06-23 16:47] VITALS: BMI 20.3
[2020-06-26] MEDS ORDERED: LIDOCAINE HCL/PF 1% SDV 5ML VIAL ONE ×2 (07:10→11:02)
[2020-06-26] MEDS ORDERED: DEXAMETHASONE SOD PHOSPHATE/PF 10 MG/ML SDV ONE ×2 (07:10→11:02)
[2020-06-26] MEDS ORDERED: BUPIVACAINE HCL/PF 0.75% 10 ML VIAL ONE (07:10)
[2020-06-26] MEDS ORDERED: SODIUM CHLORIDE 0.9% P/F 10 ML VIAL IJ ONE (07:19)
[2020-06-26] MEDS ORDERED: LIDOCAINE HCL 1% PRESERVATIVE FREE - 30ML VIAL IJ ONE (10:35)
[2020-06-26] MEDS ORDERED: IOHEXOL 180 MG/1 ML ML IJ ONE (10:35)
[2020-06-26] MEDS ORDERED: DEXAMETHASONE SOD PHOSPHATE 10 MG/1 ML VIAL IVPUSH ONE ×2 (10:36)
[2020-06-26 11:35] VITALS: BP 134/74; PULSE 63; TEMP 97.7
== END 2020-06-26 12:11 | disposition home or self-care (01) ==
LOC: JASU-SURG 04:10
PROVIDERS: ATTEND Pain Medicine Pain Medicine
PROC: 3E0R33Z Introduction of Anti-inflammatory into Spinal Canal, Percutaneous Approach (ICD-10-PCS; 2020-06-26)
PROC: 3E0R3BZ Introduction of Anesthetic Agent into Spinal Canal, Percutaneous Approach (ICD-10-PCS; principal; 2020-06-26 11:00)
DX: M54.17 Radiculopathy, lumbosacral region (principal)
CPT/HCPCS: 76000-TC-FY; J1100

== ENCOUNTER 2020-08-22 10:49 | Emergency (ER) | payer OTHER, BC ==
[2020-08-22 10:56] VITALS: BP 126/72; PULSE 67; TEMP 97.4; BMI 20.3
== END 2020-08-22 13:45 | disposition home or self-care (01) ==
LOC: JERFT 10:49
DX: R22.32 Localized swelling, mass and lump, left upper limb (principal)
CPT/HCPCS: 73060-TC-LT-FY; 73090-TC-LT-FY; 93971; 99284-25

== ENCOUNTER 2020-09-14 10:22 | Inpatient (IN) | payer OTHER, BC ==
[2020-09-14 12:21] LABS: EOS % 1.6 % (0-4.5); HEMATOCRIT 43.3 % (35.4-49); HEMOGLOBIN 15.2 GM/dL (11.7-16.9); LYMPH % 24.7 % (8-40); MCH 34.7 pg (25.7-33.7); MCHC 35.2 g/dl (32.0-35.9); MEAN CELL VOLUME 98.5 fl (80-96); MEAN PLT VOLUME 7.4 fl (7.5-11.1); MONO % 9.3 % (3.8-10.2); NEUT % 63.4 % (42.8-82.8); PLATELET COUNT 217 K/MM3 (134-434); RDW 14.5 % (11.9-15.9); WHITE BLOOD COUNT 6.2 K/mm3 (4.0-10.0)
[2020-09-14 13:00] LABS: POTASSIUM 4.5 mmol/L (3.5-5.1)
[2020-09-14 13:02] LABS: ALBUMIN 4.3 g/dl (3.4-5.0); BLOOD UREA NITROGEN 24.6 mg/dL (7-18); CALCIUM 10.1 mg/dL (8.5-10.1)
[2020-09-14 13:05] LABS: CREATININE 1.5 mg/dL (0.55-1.3)
[2020-09-14 13:07] LABS: BILIRUBIN,TOTAL 0.8 mg/dL (0.2-1); TOT PROT 7.8 g/dl (6.4-8.2)
[2020-09-14] MEDS ORDERED: CLINDAMYCIN 600MG PREMIX IVPB 600 MG/50 ML BAG IVPB ONE ×2 (17:47→17:56)
[2020-09-14] MEDS ORDERED: CLINDAMYCIN HCL 150 MG CAPSULE (FP) PO ONE (19:00)
[2020-09-14] MEDS ORDERED: CLINDAMYCIN HCL 150 MG CAPSULE (FP) ONE (19:10)
[2020-09-14] MEDS: PRAMIPEXOLE DIHYDROCHLORIDE 0.5 MG TABLET PO SCH (23:43)
[2020-09-15 04:07] VITALS: BMI 19.6
[2020-09-15 09:27] LABS: HEMOGLOBIN 13.6 GM/dL (11.7-16.9); RDW 14.7 % (11.9-15.9); WHITE BLOOD COUNT 5.2 K/mm3 (4.0-10.0)
[2020-09-15 09:30] LABS: HEMATOCRIT 39.4 % (35.4-49); MCHC 34.5 g/dl (32.0-35.9); MEAN CELL VOLUME 98.5 fl (80-96); MEAN PLT VOLUME 7.8 fl (7.5-11.1); PLATELET COUNT 193 K/MM3 (134-434); POTASSIUM 4.4 mmol/L (3.5-5.1)
[2020-09-15 09:42] LABS: ALBUMIN 3.6 g/dl (3.4-5.0)
[2020-09-15 09:51] LABS: BLOOD UREA NITROGEN 28.6 mg/dL (7-18)
[2020-09-15 09:52] LABS: CALCIUM 9.4 mg/dL (8.5-10.1)
[2020-09-15 09:53] LABS: MAGNESIUM 2.3 mg/dL (1.8-2.4)
[2020-09-15 09:56] LABS: CREATININE 1.3 mg/dL (0.55-1.3); PHOSPHOROUS 3.2 mg/dL (2.5-4.9)
[2020-09-15 09:57] LABS: BILIRUBIN,TOTAL 0.7 mg/dL (0.2-1); TOT PROT 6.3 g/dl (6.4-8.2)
[2020-09-15] MEDS ORDERED: CLINDAMYCIN HCL 150 MG CAPSULE (FP) PO SCH (10:00)
[2020-09-15] MEDS: ROSUVASTATIN CA 10 MG TABLET (FP) PO SCH (10:09)
[2020-09-15] MEDS: CLOPIDOGREL BISULFATE 75 MG TABLET (FP) PO SCH (10:09)
[2020-09-15] MEDS: LISINOPRIL 5 MG TABLET PO SCH (10:09)
[2020-09-15] MEDS: ASPIRIN COATED 81 MG TABLET.EC PO SCH (10:09)
[2020-09-15] MEDS: MULTIVITAMINS THER W-MINERALS COMBO TABLET (FP) PO SCH (10:09)
[2020-09-15 14:42] LABS: URINE APPEARANCE CLEAR; URINE BILIRUBIN NEGATIVE (NEGATIVE); URINE COLOR YELLOW; URINE GLUCOSE (UA) NEGATIVE (NEGATIVE); URINE KETONE NEGATIVE (NEGATIVE); URINE LEUK ESTERASE NEGATIVE (NEGATIVE); URINE NITRITE NEGATIVE (NEGATIVE); URINE PROTEIN NEGATIVE (NEGATIVE)
[2020-09-15] MEDS: CEFAZOLIN 2 GM/D5W 2 GM/50 ML ML IVPB SCH ×2 (14:53→18:17)
[2020-09-15] MEDS ORDERED: PT OWN MED DRAWER 7, Y5N ONE (21:40)
[2020-09-15] MEDS: PRAMIPEXOLE DIHYDROCHLORIDE 0.5 MG TABLET PO SCH (22:39)
[2020-09-16] MEDS: CEFAZOLIN 2 GM/D5W 2 GM/50 ML ML IVPB SCH ×3 (02:35→17:40)
[2020-09-16] MEDS: LISINOPRIL 5 MG TABLET PO SCH (09:10)
[2020-09-16] MEDS: ASPIRIN COATED 81 MG TABLET.EC PO SCH (09:10)
[2020-09-16] MEDS: ROSUVASTATIN CA 10 MG TABLET (FP) PO SCH (09:10)
[2020-09-16] MEDS: MULTIVITAMINS THER W-MINERALS COMBO TABLET (FP) PO SCH (09:10)
[2020-09-16] MEDS: CLOPIDOGREL BISULFATE 75 MG TABLET (FP) PO SCH (09:10)
[2020-09-16] MEDS ORDERED: PT OWN MED DRAWER 7, Y5N ONE (21:09)
[2020-09-16] MEDS: PRAMIPEXOLE DIHYDROCHLORIDE 0.5 MG TABLET PO SCH (21:40)
[2020-09-17] MEDS: CEFAZOLIN 2 GM/D5W 2 GM/50 ML ML IVPB SCH ×3 (02:37→18:18)
[2020-09-17] MEDS: ASPIRIN COATED 81 MG TABLET.EC PO SCH (09:11)
[2020-09-17] MEDS: MULTIVITAMINS THER W-MINERALS COMBO TABLET (FP) PO SCH (09:11)
[2020-09-17] MEDS: CLOPIDOGREL BISULFATE 75 MG TABLET (FP) PO SCH (09:11)
[2020-09-17] MEDS: ROSUVASTATIN CA 10 MG TABLET (FP) PO SCH (09:11)
[2020-09-17] MEDS: LISINOPRIL 5 MG TABLET PO SCH (09:11)
[2020-09-17 09:58] LABS: BASO % 1.1 % (0-2.0); EOS % 2.9 % (0-4.5); HEMATOCRIT 42.1 % (35.4-49); HEMOGLOBIN 14.5 GM/dL (11.7-16.9); LYMPH % 30.6 % (8-40); MCH 34.5 pg (25.7-33.7); MCHC 34.5 g/dl (32.0-35.9); MEAN CELL VOLUME 99.9 fl (80-96); MEAN PLT VOLUME 7.8 fl (7.5-11.1); MONO % 9.1 % (3.8-10.2); NEUT % 56.3 % (42.8-82.8); PLATELET COUNT 218 K/MM3 (134-434); RBC 4.21 M/mm3 (4.00-5.60); RDW 14.7 % (11.9-15.9); WHITE BLOOD COUNT 6.4 K/mm3 (4.0-10.0)
[2020-09-17 10:20] LABS: POTASSIUM 4.6 mmol/L (3.5-5.1)
[2020-09-17 10:23] LABS: ALBUMIN 3.8 g/dl (3.4-5.0); CALCIUM 9.8 mg/dL (8.5-10.1)
[2020-09-17 10:24] LABS: BLOOD UREA NITROGEN 33.4 mg/dL (7-18)
[2020-09-17 10:26] LABS: CREATININE 1.7 mg/dL (0.55-1.3)
[2020-09-17 10:28] LABS: BILIRUBIN,TOTAL 0.7 mg/dL (0.2-1); TOT PROT 7.1 g/dl (6.4-8.2)
[2020-09-17] MEDS ORDERED: PT OWN MED DRAWER 7, Y5N ONE ×2 (18:49→21:12)
[2020-09-17] MEDS: BACITRACIN 15 GM TUBE TOPICAL OINTMENT TP SCH (21:28)
[2020-09-17] MEDS: PRAMIPEXOLE DIHYDROCHLORIDE 0.5 MG TABLET PO SCH (22:01)
[2020-09-18] MEDS: CEFAZOLIN 2 GM/D5W 2 GM/50 ML ML IVPB SCH ×3 (01:17→17:27)
[2020-09-18] MEDS: MULTIVITAMINS THER W-MINERALS COMBO TABLET (FP) PO SCH (10:17)
[2020-09-18] MEDS: ASPIRIN COATED 81 MG TABLET.EC PO SCH (10:17)
[2020-09-18] MEDS: ROSUVASTATIN CA 10 MG TABLET (FP) PO SCH (10:17)
[2020-09-18] MEDS: LISINOPRIL 5 MG TABLET PO SCH (10:17)
[2020-09-18] MEDS: CLOPIDOGREL BISULFATE 75 MG TABLET (FP) PO SCH (10:17)
[2020-09-18] MEDS: BACITRACIN 15 GM TUBE TOPICAL OINTMENT TP SCH (10:18)
[2020-09-18 14:47] VITALS: BP 150/73; PULSE 67; TEMP 97.2
== END 2020-09-18 18:50 | disposition home or self-care (01) | DRG 603 ==
LOC: JERFT 10:22 → JER 10:22 → JERBED 18:56 → J6S 09-15 02:51
PROVIDERS: ADMIT Internal Medicine; ATTEND Family Medicine
DX: L03.114 Cellulitis of left upper limb (principal); L03.91 Acute lymphangitis, unspecified; E78.5 Hyperlipidemia, unspecified; I12.9 Hypertensive chronic kidney disease with stage 1 through stage 4 chronic kidney disease, or unspecified chronic kidney disease; N18.2 Chronic kidney disease, stage 2 (mild); Z88.0 Allergy status to penicillin; R94.5 Abnormal results of liver function studies
CPT/HCPCS: 36415; 70490-TC; 71046-TC-FY; 71250-TC; 73060-TC-LT-FY; 73090-TC-LT-FY; 73200-TC-RT; 80053; 81003; 83735; 83880; 84100; 85025; 85027; 87040; 93005; 93010; 93971; 99285-25; C9803; U0003; U0005

== ENCOUNTER → 2021-01-26 | Day surgery (SDC) | payer OTHER, BC | END | disposition home or self-care (01) | LOC: FASU 13:17 | PROVIDERS: ATTEND Internal Medicine Hematology & Oncology | PROC: 0JB60ZX Excision of Chest Subcutaneous Tissue and Fascia, Open Approach, Diagnostic (ICD-10-PCS; principal; 2021-01-26) | PROC: BH4BZZZ Ultrasonography of Chest Wall (ICD-10-PCS; 2021-01-26) | DX: C76.1 Malignant neoplasm of thorax (principal); R22.9 Localized swelling, mass and lump, unspecified | CPT/HCPCS: 19083; 21550; 76942; 87899 ==

== ENCOUNTER 2021-01-30 19:30 | Emergency (ER) | payer OTHER, BC ==
[2021-01-30 19:34] VITALS: BP 137/68; PULSE 69; TEMP 98.6; BMI 20.1
[2021-01-30] MEDS ORDERED: DIPHTH,PERTUSS(ACELL),TET 0.5 ML DISP.SYRIN IM ONE (21:24)
== END 2021-01-30 21:37 | disposition home or self-care (01) ==
LOC: JERFT 19:30
PROC: 3E0234Z Introduction of Serum, Toxoid and Vaccine into Muscle, Percutaneous Approach (ICD-10-PCS; principal; 2021-01-30)
DX: R21 Rash and other nonspecific skin eruption (principal)
CPT/HCPCS: 90471; 99284-25

== ENCOUNTER 2021-03-30 04:50 | Day surgery (SDC) | payer OTHER, BC ==
[2021-03-25 17:20] VITALS: BMI 20.1
[2021-03-30] MEDS ORDERED: BUPIVACAINE HCL/PF 0.75% 10 ML VIAL ONE (07:45)
[2021-03-30] MEDS ORDERED: LIDOCAINE HCL/PF 1% SDV 5ML VIAL ONE (12:02)
[2021-03-30] MEDS ORDERED: DEXAMETHASONE SOD PHOSPHATE 4 MG/1 ML VIAL ONE (12:03)
[2021-03-30] MEDS ORDERED: IOHEXOL 180 MG/1 ML ML IJ ONE (12:38)
[2021-03-30] MEDS ORDERED: LIDOCAINE 1% P/F 10 MG/ML VIAL INF ONE (12:38)
[2021-03-30] MEDS ORDERED: DEXAMETHASONE SOD PHOSPHATE 10 MG/1 ML VIAL IVPUSH ONE (12:38)
[2021-03-30 15:39] VITALS: BP 164/77; PULSE 74; TEMP 97.2
== END 2021-03-30 14:30 | disposition home or self-care (01) ==
LOC: JASU-SURG 04:50
PROVIDERS: ATTEND Pain Medicine Pain Medicine
PROC: 3E0R33Z Introduction of Anti-inflammatory into Spinal Canal, Percutaneous Approach (ICD-10-PCS; 2021-03-30)
PROC: 3E0R3BZ Introduction of Anesthetic Agent into Spinal Canal, Percutaneous Approach (ICD-10-PCS; principal; 2021-03-30 10:00)
DX: M54.16 Radiculopathy, lumbar region (principal)
CPT/HCPCS: 76000-TC-FY; J1100

== ENCOUNTER 2021-04-23 04:23 | Day surgery (SDC) | payer OTHER, BC ==
[2021-04-23] MEDS ORDERED: LIDOCAINE HCL/PF 1% SDV 5ML VIAL ONE (07:33)
[2021-04-23] MEDS ORDERED: DEXAMETHASONE SOD PHOSPHATE 10 MG/1 ML VIAL ONE (07:33)
[2021-04-23] MEDS ORDERED: BUPIVACAINE HCL/PF 0.5% (5MG/ML) 10 ML VIAL ONE (07:34)
[2021-04-23] MEDS ORDERED: IOHEXOL 180 MG/1 ML ML IJ ONE (09:23)
[2021-04-23] MEDS ORDERED: LIDOCAINE 1% P/F 10 MG/ML VIAL INF ONE (09:23)
[2021-04-23] MEDS ORDERED: DEXAMETHASONE SOD PHOSPHATE 10 MG/1 ML VIAL IVPUSH ONE (09:24)
[2021-04-23 10:52] VITALS: BP 152/66; PULSE 64; TEMP 98.6
== END 2021-04-23 10:15 | disposition home or self-care (01) ==
LOC: JASU-SURG 04:23
PROVIDERS: ATTEND Pain Medicine Pain Medicine
PROC: 3E0R33Z Introduction of Anti-inflammatory into Spinal Canal, Percutaneous Approach (ICD-10-PCS; 2021-04-23)
PROC: B01BYZZ Fluoroscopy of Spinal Cord using Other Contrast (ICD-10-PCS; 2021-04-23)
PROC: 3E0R3BZ Introduction of Anesthetic Agent into Spinal Canal, Percutaneous Approach (ICD-10-PCS; principal; 2021-04-23 08:30)
DX: M54.16 Radiculopathy, lumbar region (principal)
CPT/HCPCS: 76000-TC-FY; J1100

== ENCOUNTER 2021-09-10 05:25 | Day surgery (SDC) | payer OTHER, BC ==
[2021-09-07 19:56] VITALS: BMI 20.6
[~2021-09-10 05:25] MED LIST: DEXAMETHASONE SOD PHOSPHATE 10 MG/1 ML VIAL IM ONE
[2021-09-10] MEDS ORDERED: DEXAMETHASONE SOD PHOSPHATE 10 MG/1 ML VIAL ONE (07:37)
[2021-09-10] MEDS ORDERED: LIDOCAINE HCL/PF 1% SDV 5ML VIAL ONE (07:37)
[2021-09-10] MEDS ORDERED: LIDOCAINE HCL 1% PRESERVATIVE FREE - 30ML VIAL IJ ONE ×3 (11:01)
[2021-09-10] MEDS ORDERED: IOHEXOL 180 MG/1 ML ML IJ ONE (11:02)
[2021-09-10] MEDS ORDERED: DEXAMETHASONE SOD PHOSPHATE 10 MG/1 ML VIAL IM ONE (11:06)
[2021-09-10 11:26] VITALS: TEMP 97.7
[2021-09-10 12:08] VITALS: BP 156/65; PULSE 68
== END 2021-09-10 12:00 | disposition home or self-care (01) ==
LOC: JASU-SURG 05:25
PROVIDERS: ATTEND Pain Medicine Pain Medicine
PROC: 3E0R33Z Introduction of Anti-inflammatory into Spinal Canal, Percutaneous Approach (ICD-10-PCS; 2021-09-10)
PROC: B01BYZZ Fluoroscopy of Spinal Cord using Other Contrast (ICD-10-PCS; 2021-09-10)
PROC: 3E0R3BZ Introduction of Anesthetic Agent into Spinal Canal, Percutaneous Approach (ICD-10-PCS; principal; 2021-09-10 11:00)
DX: M54.16 Radiculopathy, lumbar region (principal)
CPT/HCPCS: 76000-TC-FY; J1100

== ENCOUNTER 2022-01-25 04:16 | Day surgery (SDC) | payer OTHER, BC ==
[2022-01-24 09:51] VITALS: BMI 20.1
[2022-01-25] MEDS ORDERED: LIDOCAINE HCL 2% (20ML MULTI-DOSE VIAL) ONE (07:10)
[2022-01-25] MEDS ORDERED: LIDOCAINE HCL/PF 1% SDV 5ML VIAL ONE (07:10)
[2022-01-25] MEDS ORDERED: DEXAMETHASONE SOD PHOSPHATE 10 MG/1 ML VIAL ONE (07:10)
[2022-01-25] MEDS ORDERED: BUPIVACAINE HCL/PF 0.5% (5MG/ML) 10 ML VIAL ONE (07:10)
[2022-01-25] MEDS ORDERED: LIDOCAINE HCL 1% PRESERVATIVE FREE - 30ML VIAL IJ ONE ×2 (09:47)
[2022-01-25 11:43] VITALS: BP 130/68; PULSE 70; RESP 16; TEMP 97.8
== END 2022-01-25 11:10 | disposition home or self-care (01) ==
LOC: JASU-SURG 04:16
PROVIDERS: ATTEND Pain Medicine Pain Medicine
PROC: 01HY3MZ Insertion of Neurostimulator Lead into Peripheral Nerve, Percutaneous Approach (ICD-10-PCS; principal; 2022-01-25 08:30)
DX: G89.4 Chronic pain syndrome (principal); M25.561 Pain in right knee
CPT/HCPCS: 64555; C1778; J1100

== ENCOUNTER 2022-04-01 04:09 | Day surgery (SDC) | payer OTHER, BC ==
[2022-03-24 09:31] VITALS: BMI 20.1
[~2022-04-01 04:09] MED LIST changes: -DEXAMETHASONE SOD PHOSPHATE 10 MG/1 ML VIAL IM ONE; +DEXAMETHASONE SOD PHOSPHATE 10 MG/1 ML VIAL IVPUSH ONE; +IOHEXOL 180 MG/1 ML ML IJ ONE; +LIDOCAINE HCL 1% PRESERVATIVE FREE - 30ML VIAL IJ ONE
[2022-04-01] MEDS ORDERED: LIDOCAINE HCL/PF 1% SDV 5ML VIAL ONE ×2 (07:20→07:43)
[2022-04-01] MEDS ORDERED: DEXAMETHASONE SOD PHOSPHATE 10 MG/1 ML VIAL ONE ×2 (07:21→07:44)
[2022-04-01] MEDS ORDERED: BUPIVACAINE HCL/PF 0.75% 10 ML VIAL ONE (07:41)
[2022-04-01] MEDS ORDERED: SODIUM CHLORIDE 0.9% P/F 10 ML VIAL IJ ONE (09:13)
[2022-04-01] MEDS ORDERED: LIDOCAINE HCL 1% PRESERVATIVE FREE - 30ML VIAL IJ ONE (09:55)
[2022-04-01] MEDS ORDERED: IOHEXOL 180 MG/1 ML ML IJ ONE (10:00)
[2022-04-01] MEDS ORDERED: DEXAMETHASONE SOD PHOSPHATE 10 MG/1 ML VIAL IVPUSH ONE (10:00)
[2022-04-01 10:28] VITALS: RESP 20; TEMP 97.5
[2022-04-01 11:16] VITALS: BP 150/70; PULSE 60
== END 2022-04-01 11:15 | disposition home or self-care (01) ==
LOC: JASU-SURG 04:09
PROVIDERS: ATTEND Pain Medicine Pain Medicine
PROC: 3E0R33Z Introduction of Anti-inflammatory into Spinal Canal, Percutaneous Approach (ICD-10-PCS; 2022-04-01)
PROC: 3E0R3BZ Introduction of Anesthetic Agent into Spinal Canal, Percutaneous Approach (ICD-10-PCS; principal; 2022-04-01 10:00)
DX: M54.16 Radiculopathy, lumbar region (principal); I10 Essential (primary) hypertension
CPT/HCPCS: 76000-TC-FY; J1100

== ENCOUNTER 2022-10-17 04:25 | Day surgery (SDC) | payer OTHER, BC ==
[2022-10-13 09:01] VITALS: BMI 20.9
[2022-10-17] MEDS ORDERED: KETAMINE HCL 500 MG/10 ML VIAL ONE (07:01)
[2022-10-17] MEDS ORDERED: PROPOFOL 40 ML ONE (07:07)
[2022-10-17] MEDS ORDERED: SUCCINYLCHOLINE CHLORIDE 200 MG/10 ML SYRINGE ONE (07:12)
[2022-10-17] MEDS ORDERED: BUPIVACAINE HCL/PF 0.25% (2.5MG/ML) 10 ML VIAL ONE (07:29)
[2022-10-17] MEDS ORDERED: ACETAMINOPHEN INJECTION 100 ML IVPB ONE (08:05)
[2022-10-17] MEDS ORDERED: HEPARIN NA (PORCINE) 5,000 UNITS/ML 1ML VIAL ONE (08:05)
[2022-10-17] MEDS ORDERED: CLINDAMYCIN 600 MG PREMIX BAG IVPB ONE (08:25)
[2022-10-17] MEDS ORDERED: BUPIVACAINE HCL/PF 0.25% (2.5MG/ML) 10 ML VIAL IJ ONE (08:40)
[2022-10-17] MEDS ORDERED: PROPOFOL 20 ML ONE (08:52)
[2022-10-17] MEDS ORDERED: oxyCODONE HCL 5 MG TABLET PO ONE (11:49)
[2022-10-17] MEDS ORDERED: oxyCODONE HCL 5 MG TABLET ONE (11:53)
[2022-10-17 13:23] VITALS: RESP 20; TEMP 97.9
[2022-10-17 13:30] VITALS: BP 148/65; PULSE 67
== END 2022-10-17 13:35 | disposition home or self-care (01) ==
LOC: JASU-SURG 04:25
PROVIDERS: ATTEND Surgery
PROC: 0FT44ZZ Resection of Gallbladder, Percutaneous Endoscopic Approach (ICD-10-PCS; principal; 2022-10-17 08:00)
DX: K81.9 Cholecystitis, unspecified (principal)
CPT/HCPCS: 88304-TC; 94760; J1644

== ENCOUNTER 2023-08-15 09:00 | Emergency (ER) | payer OTHER, BC ==
[2023-08-15 09:15] VITALS: TEMP 97.4; BMI 19.3
[2023-08-15] MEDS ORDERED: ACETAMINOPHEN 325 MG TABLET (FP) ONE (10:59)
[2023-08-15] MEDS: ACETAMINOPHEN 500 MG TABLET (FP) PO ONE (11:02)
[2023-08-15 13:42] VITALS: BP 165/70; PULSE 80; RESP 18
== END 2023-08-15 13:43 | disposition home or self-care (01) ==
LOC: JER 09:00
DX: M25.511 Pain in right shoulder (principal); S40.011A Contusion of right shoulder, initial encounter; W01.0XXA Fall on same level from slipping, tripping and stumbling without subsequent striking against object, initial encounter; Y92.009 Unspecified place in unspecified non-institutional (private) residence as the place of occurrence of the external cause
CPT/HCPCS: 70450-TC; 71046-TC-FY; 72125-TC; 73010-TC-FY; 73030-TC-RT-FY; 73060-TC-RT-FY; 99284-25

== ENCOUNTER 2024-04-11 08:32 | Emergency (ER) | payer OTHER, BC ==
[2024-04-11 08:41] VITALS: BMI 18.6
[2024-04-11] MEDS ORDERED: ACETAMINOPHEN 325 MG TABLET (FP) ONE (10:24)
[2024-04-11] MEDS ORDERED: LISINOPRIL 20 MG TABLET ONE (10:24)
[2024-04-11] MEDS: LISINOPRIL 20 MG TABLET PO ONE (10:30)
[2024-04-11] MEDS: ACETAMINOPHEN 500 MG TABLET (FP) PO ONE (10:30)
[2024-04-11 11:13] VITALS: BP 186/88; PULSE 68; RESP 16; TEMP 97.4
[2024-04-11] MEDS ORDERED: DIPHTH,PERTUSS(ACELL),TET 0.5 ML DISP.SYRIN IM ONE (11:34)
[2024-04-11] MEDS: DIPHTH,PERTUSS(ACELL),TET 0.5 ML DISP.SYRIN IM ONE (11:38)
== END 2024-04-11 11:59 | disposition home or self-care (01) ==
LOC: JER 08:32
PROC: 3E0234Z Introduction of Serum, Toxoid and Vaccine into Muscle, Percutaneous Approach (ICD-10-PCS; principal; 2024-04-11)
DX: S02.2XXA Fracture of nasal bones, initial encounter for closed fracture (principal); W01.198A Fall on same level from slipping, tripping and stumbling with subsequent striking against other object, initial encounter; Z23 Encounter for immunization
CPT/HCPCS: 70450-TC; 90471; 90715; 93005; 93010; 99284-25